=== PATIENT | female | born 1975 ===

== ENCOUNTER 2021-07-21 06:11 | Inpatient (IN) | payer SELFPAY ==
[2021-07-21] MEDS ORDERED: Sodium Chloride 0.9% 1,000 ML IV SCH ×2 (06:30→06:45)
[2021-07-21 07:14] LABS: PCO2 ARTERIAL,POC 37 mmHg (35-48)
--- NOTE | 2021-07-21 07:29 | EDM.PDOC ---
ED HPI GENERAL MEDICAL PROBLEM - General Chief Complaint: Respiratory Problem Stated Complaint: SHORTNESS OF BREATH, COVID Time Seen by Provider: 07/21/21 06:26 Source of Information: Reports: Patient, Family History Limitations: Reports: No Limitations - History of Present Illness INITIAL COMMENTS - FREE TEXT/NARRATIVE: Patient presents to the ED with weakness, lightheadedness, shortness of breath and covid positive about 2 weeks ago. She is unvaccinated and became infected at a family gathering for [employer]. Entire family became ill, she was tested about a week after onset of cough, fevers, runny nose, nasal congestion, body aches, loss of smell and taste. Has not been eating or drinking well, started to get some smell and taste back last night. Feels very weak, can not lay flat, no more fevers, minimal intake, feels confused. Parents that are vaccinated brought her in today. Sats at triage were 89% with exertion. Onset: Other (about two weeks ago shortly after .) Duration: Getting Worse Severity: Moderate - Related Data Allergies Allergy/AdvReac Type Severity Reaction Status Date / Time cefuroxime Allergy Difficulty Verified 07/21/21 06:55 Swallowing Sulfa (Sulfonamide Allergy Airway Verified 07/21/21 06:55 Antibiotics) Tightness Home Meds: Home Meds . [No Known Home Meds] 07/21/21 [History] Past Medical History Psychiatric History: Reports: Bipolar (currently managed without medications) - Past Surgical History Female Surgical History: Reports: Hysterectomy Social & Family History - Tobacco Use Tobacco Use Status *Q: Never Tobacco User - Alcohol Use Alcohol Use History: No Alcohol Use in Last Twelve Months: No - Recreational Drug Use Recreational Drug Use: No Drug Use in Last 12 Months: No - Living Situation & Occupation Living situation: Reports: , with Family Occupation: Employed ED ROS GENERAL - Review of Systems Review Of Systems: See Below Constitutional: Reports: Malaise, Weakness, Fatigue, Decreased Appetite HEENT: Reports: No Symptoms Respiratory: Reports: Shortness of Breath, Pleuritic Chest Pain, Cough. Denies: Sputum, Hemoptysis Cardiovascular: Reports: Dyspnea on Exertion GI/Abdominal: Reports: Diarrhea (x 2 toady, no black or blood) : Reports: Other (decreased urination) Musculoskeletal: Reports: Muscle Pain (aches only) Skin: Reports: Rash (on chest, macular, non itchy or draining) Neurological: Reports: Confusion, Dizziness Psychiatric: Reports: No Symptoms ED EXAM, GENERAL - Physical Exam Exam: See Below Exam Limited By: No Limitations General Appearance: Alert, WD/WN, No Apparent Distress Eye Exam: Bilateral Eye: EOMI, Normal Inspection, PERRL Ears: Normal External Exam, Hearing Grossly Normal Nose: Normal Inspection, Normal Mucosa, No Blood Throat/Mouth: Normal Voice, Other (severely dry mucous membranes, tongue is white, lips are cracked) Head: Atraumatic Neck: Normal Inspection, Supple, Non-Tender Respiratory/Chest: Decreased Breath Sounds (bases), Crackles (bases), Splinting. No: Respiratory Distress, Rales, Rhonchi, Wheezing Cardiovascular: No Edema, No Murmur, Tachycardia GI/Abdominal: Normal Bowel Sounds, Soft, Non-Tender. No: Rigid, Rebound, Tender Extremities: Normal Inspection, Normal Range of Motion, Non-Tender, No Pedal Edema, Normal Capillary Refill Neurological: Alert, Oriented, CN II-XII Intact, Normal Cognition, No Motor/Sensory Deficits Psychiatric: Normal Affect Skin Exam: Other (lacy reticular rash on the chest consistent with viral process) #1 Interpretation EKG Date: 07/21/21 Time: 07:49 Rhythm: NSR Rate (Beats/Min): 99 Gap: Normal P-Wave: Present QRS: Normal ST-T: Other QT: Normal Comparison: NA - No Prior EKG EKG Interpretation Comments: early repolarization with nonspecific st changes associated with rate Course - Vital Signs Last Recorded V/S: Last Vital Signs Temp 36.6 C 07/21/21 06:14 Pulse 92 07/21/21 08:06 Resp 20 07/21/21 08:06 BP 109/65 07/21/21 08:06 Pulse Ox 96 07/21/21 08:06 - Orders/Labs/Meds Orders: Active Orders 24 hr Category Date Time Status Admission Status [Patient Status] [ADT] Routine ADT 07/21/21 08:41 Active EKG Documentation Completion [RC] ASDIRECTED Care 07/21/21 06:27 Active Nurse Communication: Isolation [RC] ASDIRECTED Care 07/21/21 08:24 Active Oxygen Therapy [RC] ASDIRECTED Care 07/21/21 08:28 Active Peripheral IV Care [RC] . DIRECTED Care 07/21/21 06:27 Active Positioning, Patient [RC] ASDIRECTED Care 07/21/21 08:23 Active RT Incentive Spirometry [RC] ASDIRECTED Care 07/21/21 08:23 Active Chest 1V Frontal [CR] Stat Exams 07/21/21 06:26 Ordered Gallbladder [Abdomen Ltd] [US] Stat Exams 07/21/21 08:29 Ordered COVID-19/FLU A+B/RSV [MOLEC] Stat Lab 07/21/21 08:30 Received CULTURE BLOOD [BC] Stat Lab 07/21/21 06:27 Ordered CULTURE BLOOD [BC] Stat Lab 07/21/21 06:50 Received Acetaminophen [TylenoL] Med 07/21/21 08:23 Active 650 mg PO Q4H PRN Remdesivir 100 mg Med 07/22/21 09:00 Active Sodium Chloride 0.9% [Normal Saline] 100 ml IV Q24H Remdesivir 200 mg Med 07/21/21 08:23 Active Sodium Chloride 0.9% [Normal Saline] 250 ml IV ONETIME Sodium Chloride 0.9% [Normal Saline] 1,000 ml Med 07/21/21 06:30 Active IV ASDIRECTED Sodium Chloride 0.9% [Normal Saline] 1,000 ml Med 07/21/21 06:45 Active IV ASDIRECTED Sodium Chloride 0.9% [Saline Flush] Med 07/21/21 06:26 Active 10 ml FLUSH ASDIRECTED PRN dexAMETHasone Med 07/21/21 08:30 Active 6 mg PO DAILY Blood Culture x2 Reflex Set [OM.PC] Stat Oth 07/21/21 06:26 Ordered Isolation [COMM] Stat Oth 07/21/21 08:23 Active Peripheral IV Insertion Adult [OM.PC] Routine Oth 07/21/21 06:26 Ordered Medication Orders Acetaminophen (Acetaminophen 325 Mg Tab) 650 mg PO Q4H PRN PRN Reason: Fever Greater Than 101 Dexamethasone (Dexamethasone 2 Mg Tab) 6 mg PO DAILY JOSHUA Stop: 07/30/21 08:01 Sodium Chloride (Normal Saline) 1,000 mls @ 999 mls/hr IV ASDIRECTED JOSHUA Last Admin: 07/21/21 06:50 Dose: 999 mls/hr Documented by: GEORGINA Sodium Chloride (Normal Saline) 1,000 mls @ 999 mls/hr IV ASDIRECTED JOSHUA Last Admin: 07/21/21 07:55 Dose: 999 mls/hr Documented by: GEORGINA Remdesivir 200 mg/ Sodium (Chloride) 250 mls @ 250 mls/hr IV ONETIME ONE Stop: 07/21/21 09:22 Remdesivir 100 mg/ Sodium (Chloride) 100 mls @ 100 mls/hr IV Q24H JOSHUA Stop: 07/25/21 09:59 Sodium Chloride (Sodium Chloride 0.9% 10 Ml Syringe) 10 ml FLUSH ASDIRECTED PRN PRN Reason: Keep Vein Open Labs: Laboratory Tests 07/21/21 07/21/21 07/21/21 Range/Units 06:50 06:50 06:50 WBC 3.0 L (4.0-10.2) K/uL RBC 4.72 (3.77-5.09) M/uL Hgb 14.6 (11.7-15.5) g/dL Hct 43.8 (34.0-46.0) % MCV 92.8 (84.0-98.0) fL MCH 30.9 (28.2-33.3) pg MCHC 33.3 (31.7-36.0) g/dL RDW 13.1 (11.2-14.1) % Plt Count 213 (150-350) K/uL Neut % (Auto) 63.7 (45.0-80.0) % Lymph % (Auto) 17.3 (10.0-50.0) % [place] % (Auto) 18.7 H (2.0-14.0) % Eos % (Auto) 0.0 (0.0-5.0) % Baso % (Auto) 0.3 (0.0-2.0) % Neut # (Auto) 1.91 (1.40-7.00) K/uL Lymph # (Auto) 0.52 (0.50-3.50) K/uL [place] # (Auto) 0.56 (0.00-1.00) K/uL Eos # (Auto) 0.00 (0.00-0.50) K/uL Baso # (Auto) 0.01 (0.00-0.20) K/uL D-Dimer, Quantitative 347 (0-400) ng/mL POC ABG pH (7.35-7.45) pH POC ABG pCO2 (35-48) mmHg POC ABG pO2 (83-108) mmHg POC ABG HCO3 (22-26) mmol/L POC ABG Total CO2 (23-27) mmol/L POC ABG O2 Sat (95-98) % POC ABG Base Excess (-2-3) mmol/L O2 Delivery Device Oxygen Flow Rate Sodium 141 (136-145) mmol/L Potassium 3.5 (3.5-5.1) mmol/L Chloride 103 (98-107) mmol/L Carbon Dioxide 25.1 (21.0-32.0) mmol/L Anion Gap 12.9 (7-15) meq/L BUN 8 (7-18) mg/dL Creatinine 0.59 (0.51-1.17) mg/dL Est Cr Clr Drug Dosing TNP Estimated GFR (MDRD) > 60 mL/min Glucose 90 (70-99) mg/dL Lactic Acid (0.4-2.0) mmol/L Calcium 8.7 (8.5-10.1) mg/dL Total Bilirubin 0.5 (0.2-1.0) mg/dL AST 100 H (15-37) U/L ALT 249 H (12-78) U/L Alkaline Phosphatase 128 H (46-116) IU/L Troponin I High Sens 8 (<=51) ng/L C-Reactive Protein 6.6 H (<=0.9) mg/dL Total Protein 7.3 (6.4-8.2) g/dL Albumin 3.0 L (3.4-5.0) g/dL Specimen Type Urine Color Urine Appearance Urine pH (5.0-9.0) Ur Specific Winger (1.005-1.030) Urine Protein (NEGATIVE) mg/dL Urine Glucose (UA) (NEGATIVE) mg/dL Urine Ketones (NEGATIVE) mg/dL Urine Occult Blood (NEGATIVE) Urine Nitrite (NEGATIVE) Urine Bilirubin (NEGATIVE) Urine Urobilinogen (0.2-1.0) E.U./dL Ur Leukocyte Esterase (NEGATIVE) 07/21/21 07/21/21 07/21/21 Range/Units 06:50 07:00 07:53 WBC (4.0-10.2) K/uL RBC (3.77-5.09) M/uL Hgb (11.7-15.5) g/dL Hct (34.0-46.0) % MCV (84.0-98.0) fL MCH (28.2-33.3) pg MCHC (31.7-36.0) g/dL RDW (11.2-14.1) % Plt Count (150-350) K/uL Neut % (Auto) (45.0-80.0) % Lymph % (Auto) (10.0-50.0) % [place] % (Auto) (2.0-14.0) % Eos % (Auto) (0.0-5.0) % Baso % (Auto) (0.0-2.0) % Neut # (Auto) (1.40-7.00) K/uL Lymph # (Auto) (0.50-3.50) K/uL [place] # (Auto) (0.00-1.00) K/uL Eos # (Auto) (0.00-0.50) K/uL Baso # (Auto) (0.00-0.20) K/uL D-Dimer, Quantitative (0-400) ng/mL POC ABG pH 7.4 (7.35-7.45) pH POC ABG pCO2 37 (35-48) mmHg POC ABG pO2 65 L* (83-108) mmHg POC ABG HCO3 25.1 (22-26) mmol/L POC ABG Total CO2 25.6 (23-27) mmol/L POC ABG O2 Sat 93.2 L (95-98) % POC ABG Base Excess 1 (-2-3) mmol/L O2 Delivery Device Room air Oxygen Flow Rate Not Reportable Sodium (136-145) mmol/L Potassium (3.5-5.1) mmol/L Chloride (98-107) mmol/L Carbon Dioxide (21.0-32.0) mmol/L Anion Gap (7-15) meq/L BUN (7-18) mg/dL Creatinine (0.51-1.17) mg/dL Est Cr Clr Drug Dosing Estimated GFR (MDRD) mL/min Glucose (70-99) mg/dL Lactic Acid 0.7 (0.4-2.0) mmol/L Calcium (8.5-10.1) mg/dL Total Bilirubin (0.2-1.0) mg/dL AST (15-37) U/L ALT (12-78) U/L Alkaline Phosphatase (46-116) IU/L Troponin I High Sens (<=51) ng/L C-Reactive Protein (<=0.9) mg/dL Total Protein (6.4-8.2) g/dL Albumin (3.4-5.0) g/dL Specimen Type Urincc Urine Color Yellow Urine Appearance Clear Urine pH 6.5 (5.0-9.0) Ur Specific Winger 1.015 (1.005-1.030) Urine Protein Negative (NEGATIVE) mg/dL Urine Glucose (UA) Negative (NEGATIVE) mg/dL Urine Ketones >=160 H (NEGATIVE) mg/dL Urine Occult Blood Negative (NEGATIVE) Urine Nitrite Negative (NEGATIVE) Urine Bilirubin Negative (NEGATIVE) Urine Urobilinogen 0.2 (0.2-1.0) E.U./dL Ur Leukocyte Esterase Negative (NEGATIVE) Meds: Medications Generic Name Dose Route Start Last Admin Trade Name Freq PRN Reason Stop Dose Admin Acetaminophen 650 mg 07/21/21 08:23 Acetaminophen 325 Mg Tab PO Q4H PRN Fever Greater Than 101 Dexamethasone 6 mg 07/21/21 08:30 Dexamethasone 2 Mg Tab PO 07/30/21 08:01 DAILY JOSHUA Sodium Chloride 1,000 mls @ 999 mls/hr 07/21/21 06:30 07/21/21 06:50 Normal Saline IV 999 mls/hr ASDIRECTED JOSHUA Administration Sodium Chloride 1,000 mls @ 999 mls/hr 07/21/21 06:45 07/21/21 07:55 Normal Saline IV 999 mls/hr ASDIRECTED JOSUHA Administration Remdesivir 200 mg/ Sodium 250 mls @ 250 mls/hr 07/21/21 08:23 Chloride IV 07/21/21 09:22 ONETIME ONE Remdesivir 100 mg/ Sodium 100 mls @ 100 mls/hr 07/22/21 09:00 Chloride IV 07/25/21 09:59 Q24H JOSHUA Sodium Chloride 10 ml 07/21/21 06:26 Sodium Chloride 0.9% 10 Ml Syringe FLUSH ASDIRECTED PRN Keep Vein Open - Radiology Interpretation Free Text/Narrative:: lower lung mancuso with covid type pneumonia appearance. preliminary interpretation. - Re-Assessments/Exams Free Text/Narrative Re-Assessment/Exam: Patient was hypoxic at arrival at 89%. given 2 lpm. 96%. O2 stopped for abg, Po2 65. still maintaining 92% on room air. will ambulate in the room. Check labs, ekg, chest x-ray, give IV fluids x 2 liters as skin is tenting and clinically dry. 07/21/21 08:14 normal ddimer, trop, wbc. chest x-ray looks like covid pneumonia. will ambulate in the room. Did briefly drop to 89% with short walk to bathroom. with attempt to stand gets near syncopal. will not ambulate further. Needs admission for remdesivir, decadron, incentive spirometery, nebs. 07/21/21 08:23 retest for covid, flu rsv. needs remdesivir, decadron, oxygen Departure - Departure Time of Disposition: 08:28 Disposition: Admitted As Inpatient 64 Condition: Fair Clinical Impression: Pneumonia due to COVID-19 virus, Hypoxia - Discharge Information *PRESCRIPTION DRUG MONITORING PROGRAM REVIEWED*: Not Applicable *COPY OF PRESCRIPTION DRUG MONITORING REPORT IN PATIENT DELTA: Not Applicable Sepsis Event Note (ED) - Focused Exam Vital Signs: Vital Signs Temp Pulse Resp BP Pulse Ox 07/21/21 08:06 92 20 109/65 96 07/21/21 07:00 107 H 20 95 07/21/21 06:20 104 H 18 119/84 93 L 07/21/21 06:14 36.6 C 112 H 20 125/84 89 L - My Orders Last 24 Hours: My Active Orders 07/21/21 06:26 Chest 1V Frontal [CR] Stat Sodium Chloride 0.9% [Saline Flush] 10 ml FLUSH ASDIRECTED PRN Blood Culture x2 Reflex Set [OM.PC] Stat Peripheral IV Insertion Adult [OM.PC] Routine 07/21/21 06:27 EKG Documentation Completion [RC] ASDIRECTED Peripheral IV Care [RC] . DIRECTED CULTURE BLOOD [BC] Stat 07/21/21 06:30 Sodium Chloride 0.9% [Normal Saline] 1,000 ml IV ASDIRECTED 07/21/21 06:45 Sodium Chloride 0.9% [Normal Saline] 1,000 ml IV ASDIRECTED 07/21/21 06:50 CULTURE BLOOD [BC] Stat 07/21/21 08:23 Positioning, Patient [RC] ASDIRECTED RT Incentive Spirometry [RC] ASDIRECTED Acetaminophen [TylenoL] 650 mg PO Q4H PRN Remdesivir 200 mg Sodium Chloride 0.9% [Normal Saline] 250 ml IV ONETIME Isolation [COMM] Stat 07/21/21 08:24 Nurse Communication: Isolation [RC] ASDIRECTED 07/21/21 08:28 Oxygen Therapy [RC] ASDIRECTED 07/21/21 08:29 Gallbladder [Abdomen Ltd] [US] Stat 07/21/21 08:30 COVID-19/FLU A+B/RSV [MOLEC] Stat dexAMETHasone 6 mg PO DAILY 07/21/21 08:41 Admission Status [Patient Status] [ADT] Routine 07/22/21 09:00 Remdesivir 100 mg Sodium Chloride 0.9% [Normal Saline] 100 ml IV Q24H - Assessment/Plan Last 24 Hours: My Active Orders 07/21/21 06:26 Chest 1V Frontal [CR] Stat Sodium Chloride 0.9% [Saline Flush] 10 ml FLUSH ASDIRECTED PRN Blood Culture x2 Reflex Set [OM.PC] Stat Peripheral IV Insertion Adult [OM.PC] Routine 07/21/21 06:27 EKG Documentation Completion [RC] ASDIRECTED Peripheral IV Care [RC] . DIRECTED CULTURE BLOOD [BC] Stat 07/21/21 06:30 Sodium Chloride 0.9% [Normal Saline] 1,000 ml IV ASDIRECTED 07/21/21 06:45 Sodium Chloride 0.9% [Normal Saline] 1,000 ml IV ASDIRECTED 07/21/21 06:50 CULTURE BLOOD [BC] Stat 07/21/21 08:23 Positioning, Patient [RC] ASDIRECTED RT Incentive Spirometry [RC] ASDIRECTED Acetaminophen [TylenoL] 650 mg PO Q4H PRN Remdesivir 200 mg Sodium Chloride 0.9% [Normal Saline] 250 ml IV ONETIME Isolation [COMM] Stat 07/21/21 08:24 Nurse Communication: Isolation [RC] ASDIRECTED 07/21/21 08:28 Oxygen Therapy [RC] ASDIRECTED 07/21/21 08:29 Gallbladder [Abdomen Ltd] [US] Stat 07/21/21 08:30 COVID-19/FLU A+B/RSV [MOLEC] Stat dexAMETHasone 6 mg PO DAILY 12/13/21 08:41 Admission Status [Patient Status] [ADT] Routine 07/22/21 09:00 Remdesivir 100 mg Sodium Chloride 0.9% [Normal Saline] 100 ml IV Q24H
[2021-07-21 08:02] LABS: ANION GAP 12.9 meq/L (7-15); CHLORIDE,CL 103 mmol/L (98-107); SODIUM,NA 141 mmol/L (136-145)
[2021-07-21] MEDS ORDERED: Acetaminophen 325 MG Tab PO PRN (08:23)
[2021-07-21] MEDS ORDERED: REMDESIVIR 200 MG in Sodium Chloride 0.9% 250 ML IV ONE (08:23)
[2021-07-21 09:23] LABS: RESPIRATORY SYNCYTIAL VIR NAA NEGATIVE (NEGATIVE)
[2021-07-21 09:25] LABS: CORONAVIRUS COVID-19 NAA POSITIVE (NEGATIVE)
[2021-07-21] MEDS: Dexamethasone 2 MG Tab PO SCH (09:57)
[2021-07-21] MEDS ORDERED: Albuterol 0.083% 2.5 MG/3 ML Neb Soln NEB PRN (10:06)
[2021-07-21] MEDS ORDERED: Melatonin 3 MG Tab PO PRN (10:06)
[2021-07-21] MEDS ORDERED: Bisacodyl 5 MG Tab PO PRN (10:06)
[2021-07-21] MEDS ORDERED: Ondansetron 4 MG Tab.DIS PO PRN (10:06)
[2021-07-21] MEDS ORDERED: Ibuprofen 400 MG Tab PO PRN (10:06)
[2021-07-21] MEDS: Ascorbic Acid 500 MG Tab PO SCH ×2 (11:26→17:14)
[2021-07-21] MEDS: Enoxaparin 40 MG/0.4 ML Syringe SUBCUT SCH (11:26)
[2021-07-21] MEDS: Zinc (Zinc Gluconate) 50 MG Tab PO SCH (11:26)
[2021-07-21] MEDS: Cholecalciferol (Vitamin D3) 5,000 UNIT Tab PO SCH (11:26)
--- NOTE | 2021-07-21 13:25 | PCM.SN.2 ---
- Free Text/Narrative Note: Ultrasound report. Testing done to rule out obstructive or more ominous process duet o elevated LFTs with covid and concern for monitoring with remdesivir. Liver is normal, no gallstones, no pericholecystic fluid, no explanation for elevation of LFT. Simple cyst at lower pole of right kidney interpreted by radiology
[2021-07-22 08:01] LABS: CHLORIDE,CL 108 mmol/L (98-107); SODIUM,NA 145 mmol/L (136-145)
[2021-07-22 08:14] LABS: ANION GAP 13.5 meq/L (7-15)
--- NOTE | 2021-07-22 08:24 | PCM.PN ---
- General Info Date of Service: 07/22/21 Admission Dx/Problem (Free Text): Admission Diagnosis/Problem Admission Diagnosis/Problem Hypoxia due to covid 19 weakness Subjective Update: Patient was admitted yesterday for near syncope, dehydration, covid 19 positive hypoxia. She has been trying to prone, doing several hours a day. She is eating and drinking, still some loose stools but no abdominal pain, black or bloody stools. received first dose of remdesivir and is on oxygen. Feeling a bit better. Having some heartburn, and has not been able to sleep in two weeks. Does not feel it is related to her bipolar disorder, does not usually struggle to sleep, blames some of it on being uncomfortable at home and is more co mfortable here. Has been trying Benadryl at home, did not help. Has never been on other sleep aids. Did not take the melatonin ordered prn last night. - Review of Systems General: Reports: Fatigue, Chills HEENT: Reports: No Symptoms. Denies: Headaches, Post Nasal Drip, Sinus Congestion, Sore Throat Pulmonary: Reports: Shortness of Breath, Pleuritic Chest Pain, Cough. Denies: Sputum, Hemoptysis, Wheezing Cardiovascular: Reports: Dyspnea on Exertion, Lightheadedness. Denies: Chest Pain, Palpitations Gastrointestinal: Reports: Other (heartburn) Genitourinary: Reports: No Symptoms Musculoskeletal: Reports: No Symptoms Skin: Reports: Rash (unchanged from yesterday) Neurological: Reports: Dizziness (with standing, improves wtih pausing), Other (insomnia) - Patient Data Vitals - Most Recent: Last Vital Signs Temp 36.7 C 07/22/21 04:00 Pulse 75 07/22/21 04:00 Resp 14 07/22/21 04:00 BP 118/72 07/22/21 04:00 Pulse Ox 95 07/22/21 04:00 Weight - Most Recent: 52.163 kg I&O - Last 24 Hours: Intake & Output 07/21/21 07/22/21 07/22/21 22:59 06:59 14:59 Intake Total 1919 Balance 1919 Lab Results Last 24 Hours: Laboratory Results - last 24 hr 07/21/21 07/21/21 07/22/21 Range/Units 07:53 08:30 07:30 WBC 5.0 (4.0-10.2) K/uL RBC 4.21 (3.77-5.09) M/uL Hgb 13.0 D (11.7-15.5) g/dL Hct 39.2 (34.0-46.0) % MCV 93.1 (84.0-98.0) fL MCH 30.9 (28.2-33.3) pg MCHC 33.2 (31.7-36.0) g/dL RDW 12.6 (11.2-14.1) % Plt Count 301 D (150-350) K/uL MPV 9.30 (7.00-11.50) fL Sodium (136-145) mmol/L Potassium (3.5-5.1) mmol/L Chloride (98-107) mmol/L Carbon Dioxide (21.0-32.0) mmol/L Anion Gap (7-15) meq/L BUN (7-18) mg/dL Creatinine (0.51-1.17) mg/dL Est Cr Clr Drug Dosing mL/min Estimated GFR (MDRD) mL/min Glucose (70-99) mg/dL Calcium (8.5-10.1) mg/dL Total Bilirubin (0.2-1.0) mg/dL Direct Bilirubin (0.0-0.2) mg/dL AST (15-37) U/L ALT (12-78) U/L Alkaline Phosphatase (46-116) IU/L Total Protein (6.4-8.2) g/dL Albumin (3.4-5.0) g/dL Specimen Type Urincc Urine Color Yellow Urine Appearance Clear Urine pH 6.5 (5.0-9.0) Ur Specific [place] 1.015 (1.005-1.030) Urine Protein Negative (NEGATIVE) mg/dL Urine Glucose (UA) Negative (NEGATIVE) mg/dL Urine Ketones >=160 H (NEGATIVE) mg/dL Urine Occult Blood Negative (NEGATIVE) Urine Nitrite Negative (NEGATIVE) Urine Bilirubin Negative (NEGATIVE) Urine Urobilinogen 0.2 (0.2-1.0) E.U./dL Ur Leukocyte Esterase Negative (NEGATIVE) Influenza Type A RNA Negative (NEGATIVE) RSV RNA (INAAT) Negative (NEGATIVE) Influenza Type B RNA Negative (NEGATIVE) SARS-CoV-2 RNA (NINFA) Positive H (NEGATIVE) 07/22/21 Range/Units 07:30 WBC (4.0-10.2) K/uL RBC (3.77-5.09) M/uL Hgb (11.7-15.5) g/dL Hct (34.0-46.0) % MCV (84.0-98.0) fL MCH (28.2-33.3) pg MCHC (31.7-36.0) g/dL RDW (11.2-14.1) % Plt Count (150-350) K/uL MPV (7.00-11.50) fL Sodium 145 (136-145) mmol/L Potassium 4.0 (3.5-5.1) mmol/L Chloride 108 H (98-107) mmol/L Carbon Dioxide 27.5 (21.0-32.0) mmol/L Anion Gap 13.5 (7-15) meq/L BUN 9 (7-18) mg/dL Creatinine 0.59 (0.51-1.17) mg/dL Est Cr Clr Drug Dosing 92.23 mL/min Estimated GFR (MDRD) > 60 mL/min Glucose 94 (70-99) mg/dL Calcium 8.6 (8.5-10.1) mg/dL Total Bilirubin 0.4 (0.2-1.0) mg/dL Direct Bilirubin 0.1 (0.0-0.2) mg/dL AST 58 H (15-37) U/L ALT 177 H (12-78) U/L Alkaline Phosphatase 122 H (46-116) IU/L Total Protein 6.5 (6.4-8.2) g/dL Albumin 2.7 L (3.4-5.0) g/dL Specimen Type Urine Color Urine Appearance Urine pH (5.0-9.0) Ur Specific [place] (1.005-1.030) Urine Protein (NEGATIVE) mg/dL Urine Glucose (UA) (NEGATIVE) mg/dL Urine Ketones (NEGATIVE) mg/dL Urine Occult Blood (NEGATIVE) Urine Nitrite (NEGATIVE) Urine Bilirubin (NEGATIVE) Urine Urobilinogen (0.2-1.0) E.U./dL Ur Leukocyte Esterase (NEGATIVE) Influenza Type A RNA (NEGATIVE) RSV RNA (INAAT) (NEGATIVE) Influenza Type B RNA (NEGATIVE) SARS-CoV-2 RNA (NINFA) (NEGATIVE) Hubert Results Last 24 Hours: Microbiology 07/21/21 06:50 Aerobic Blood Culture - Preliminary Blood - Venous NO GROWTH AFTER 1 DAY Anaerobic Blood Culture - Preliminary NO GROWTH AFTER 1 DAY Med Orders - Current: Current Medications Acetaminophen (Acetaminophen 325 Mg Tab) 650 mg PO Q4H PRN PRN Reason: Fever Greater Than 101 Albuterol (Albuterol 0.083% 2.5 Mg/3 Ml Neb Soln) 2.5 mg NEB Q2H PRN PRN Reason: Shortness Of Breath/wheezing Last Admin: 07/22/21 04:08 Dose: 2.5 mg Documented by: Ascorbic Acid (Ascorbic Acid 500 Mg Tab) 500 mg PO BID [facility] Last Admin: 07/21/21 17:14 Dose: 500 mg Documented by: Bisacodyl (Bisacodyl 5 Mg Tab) 5 mg PO DAILY PRN PRN Reason: Constipation Cholecalciferol (Cholecalciferol (Vitamin D3) 5,000 Unit Tab) 5,000 unit PO DAILY [facility] Last Admin: 07/21/21 11:26 Dose: 5,000 unit Documented by: Dexamethasone (Dexamethasone 2 Mg Tab) 6 mg PO DAILY [facility] Stop: 07/26/21 08:01 Last Admin: 07/21/21 09:57 Dose: 6 mg Documented by: Enoxaparin Sodium (Enoxaparin 40 Mg/0.4 Ml Syringe) 40 mg SUBCUT DAILY [facility] Last Admin: 07/21/21 11:26 Dose: 40 mg Documented by: Famotidine (Famotidine 20 Mg/2 Ml Sdv) 20 mg IVPUSH BID [facility] Sodium Chloride (Normal Saline) 1,000 mls @ 999 mls/hr IV ASDIRECTED [facility] Last Admin: 07/21/21 06:50 Dose: 999 mls/hr Documented by: Sodium Chloride (Normal Saline) 1,000 mls @ 999 mls/hr IV ASDIRECTED [facility] Last Admin: 07/21/21 07:55 Dose: 999 mls/hr Documented by: Remdesivir 100 mg/ Sodium (Chloride) 100 mls @ 100 mls/hr IV Q24H [facility] Stop: 07/25/21 09:59 Ibuprofen (Ibuprofen 400 Mg Tab) 400 mg PO Q6H PRN PRN Reason: Pain (mild 1-3) Melatonin (Melatonin 3 Mg Tab) 6 mg PO BEDTIME [facility] Ondansetron HCl (Ondansetron 4 Mg Tab.Dis) 4 mg PO Q4H PRN PRN Reason: Nausea/Vomiting Last Admin: 07/22/21 05:53 Dose: 4 mg Documented by: Sodium Chloride (Sodium Chloride 0.9% 10 Ml Syringe) 10 ml FLUSH ASDIRECTED PRN PRN Reason: Keep Vein Open Zinc Gluconate (Zinc (Zinc Gluconate) 50 Mg Tab) 50 mg PO DAILY [facility] Last Admin: 07/21/21 11:26 Dose: 50 mg Documented by: Zolpidem Tartrate (Zolpidem 5 Mg Tab) 5 mg PO BEDTIME [facility] Discontinued Medications Remdesivir 200 mg/ Sodium (Chloride) 250 mls @ 250 mls/hr IV ONETIME ONE Stop: 07/21/21 09:22 Last Admin: 07/21/21 09:58 Dose: 250 mls/hr Documented by: Melatonin (Melatonin 3 Mg Tab) 6 mg PO BEDTIME PRN PRN Reason: Insomnia - Exam Quality Assessment: Supplemental Oxygen General: Alert, Oriented, Cooperative HEENT: Pupils Equal, Pupils Reactive, EOMI, Other (mucous membranes improved, just not to baseline, still clinically dry) Neck: Supple, Trachea Midline Lungs: Decreased Breath Sounds (bases but improved from yesterday), Wheezing (very minimal) GI/Abdominal Exam: Normal Bowel Sounds, Soft, Non-Tender, No Abnormal Bruit, No Mass Extremities: Normal Inspection, Normal Range of Motion, Non-Tender, No Pedal Edema, Normal Capillary Refill Neurological: No New Focal Deficit Psy/Mental Status: Alert, Normal Affect - Patient Data Lab Results Last 24 hrs: Laboratory Results - last 24 hr 07/21/21 07/21/21 07/22/21 Range/Units 07:53 08:30 07:30 WBC 5.0 (4.0-10.2) K/uL RBC 4.21 (3.77-5.09) M/uL Hgb 13.0 D (11.7-15.5) g/dL Hct 39.2 (34.0-46.0) % MCV 93.1 (84.0-98.0) fL MCH 30.9 (28.2-33.3) pg MCHC 33.2 (31.7-36.0) g/dL RDW 12.6 (11.2-14.1) % Plt Count 301 D (150-350) K/uL MPV 9.30 (7.00-11.50) fL Sodium (136-145) mmol/L Potassium (3.5-5.1) mmol/L Chloride (98-107) mmol/L Carbon Dioxide (21.0-32.0) mmol/L Anion Gap (7-15) meq/L BUN (7-18) mg/dL Creatinine (0.51-1.17) mg/dL Est Cr Clr Drug Dosing mL/min Estimated GFR (MDRD) mL/min Glucose (70-99) mg/dL Calcium (8.5-10.1) mg/dL Total Bilirubin (0.2-1.0) mg/dL Direct Bilirubin (0.0-0.2) mg/dL AST (15-37) U/L ALT (12-78) U/L Alkaline Phosphatase (46-116) IU/L Total Protein (6.4-8.2) g/dL Albumin (3.4-5.0) g/dL Specimen Type Urincc Urine Color Yellow Urine Appearance Clear Urine pH 6.5 (5.0-9.0) Ur Specific [place] 1.015 (1.005-1.030) Urine Protein Negative (NEGATIVE) mg/dL Urine Glucose (UA) Negative (NEGATIVE) mg/dL Urine Ketones >=160 H (NEGATIVE) mg/dL Urine Occult Blood Negative (NEGATIVE) Urine Nitrite Negative (NEGATIVE) Urine Bilirubin Negative (NEGATIVE) Urine Urobilinogen 0.2 (0.2-1.0) E.U./dL Ur Leukocyte Esterase Negative (NEGATIVE) Influenza Type A RNA Negative (NEGATIVE) RSV RNA (INAAT) Negative (NEGATIVE) Influenza Type B RNA Negative (NEGATIVE) SARS-CoV-2 RNA (NINFA) Positive H (NEGATIVE) 07/22/21 Range/Units 07:30 WBC (4.0-10.2) K/uL RBC (3.77-5.09) M/uL Hgb (11.7-15.5) g/dL Hct (34.0-46.0) % MCV (84.0-98.0) fL MCH (28.2-33.3) pg MCHC (31.7-36.0) g/dL RDW (11.2-14.1) % Plt Count (150-350) K/uL MPV (7.00-11.50) fL Sodium 145 (136-145) mmol/L Potassium 4.0 (3.5-5.1) mmol/L Chloride 108 H (98-107) mmol/L Carbon Dioxide 27.5 (21.0-32.0) mmol/L Anion Gap 13.5 (7-15) meq/L BUN 9 (7-18) mg/dL Creatinine 0.59 (0.51-1.17) mg/dL Est Cr Clr Drug Dosing 92.23 mL/min Estimated GFR (MDRD) > 60 mL/min Glucose 94 (70-99) mg/dL Calcium 8.6 (8.5-10.1) mg/dL Total Bilirubin 0.4 (0.2-1.0) mg/dL Direct Bilirubin 0.1 (0.0-0.2) mg/dL AST 58 H (15-37) U/L ALT 177 H (12-78) U/L Alkaline Phosphatase 122 H (46-116) IU/L Total Protein 6.5 (6.4-8.2) g/dL Albumin 2.7 L (3.4-5.0) g/dL Specimen Type Urine Color Urine Appearance Urine pH (5.0-9.0) Ur Specific [place] (1.005-1.030) Urine Protein (NEGATIVE) mg/dL Urine Glucose (UA) (NEGATIVE) mg/dL Urine Ketones (NEGATIVE) mg/dL Urine Occult Blood (NEGATIVE) Urine Nitrite (NEGATIVE) Urine Bilirubin (NEGATIVE) Urine Urobilinogen (0.2-1.0) E.U./dL Ur Leukocyte Esterase (NEGATIVE) Influenza Type A RNA (NEGATIVE) RSV RNA (INAAT) (NEGATIVE) Influenza Type B RNA (NEGATIVE) SARS-CoV-2 RNA (NINFA) (NEGATIVE) Result Diagrams: 07/22/21 07:30 07/22/21 07:30 Hubert Results Last 24 hrs: Microbiology 07/21/21 06:50 Aerobic Blood Culture - Preliminary Blood - Venous NO GROWTH AFTER 1 DAY Anaerobic Blood Culture - Preliminary NO GROWTH AFTER 1 DAY Sepsis Event Note - Evaluation Sepsis Screening Result: No Definite Risk - Focused Exam Vital Signs: Vital Signs Temp Pulse Resp BP Pulse Ox 07/22/21 04:00 36.7 C 75 14 118/72 95 - Problem List & Annotations (1) Elevated LFTs SNOMED Code(s): 798826028 Code(s): R79.89 - OTHER SPECIFIED ABNORMAL FINDINGS OF BLOOD CHEMISTRY Status: Acute Current Visit: Yes Annotation/Comment:: Probable due to covid, improving with hydation, still in the acceptable range to continue remdesivir. ultrasound yesterday was negative for abcute hepatobiliary process. Continue to monitor (2) Insomnia SNOMED Code(s): 547076379 Code(s): G47.00 - INSOMNIA, UNSPECIFIED Status: Acute Current Visit: Yes Qualifiers: Insomnia type: other insomnia Qualified Code(s): G47.09 - Other insomnia Annotation/Comment:: Not had problems with this in the past. Since having covid not able to sleep, does not think it has anything to do with her bipolar, no manic episodes in the past. Tried benaryl at home, didn't work. Has melatonin prn and will give ambien tonight and try (3) Hypoxia SNOMED Code(s): 604017720 Code(s): R09.02 - HYPOXEMIA Status: Acute Current Visit: No Annotation/Comment:: on 2 lpm by nasal canula, maintaining sats. PO2 was 65. continue nebs, encourage prone position (4) Pneumonia due to COVID-19 virus SNOMED Code(s): 270505619967254292 Code(s): U07.1 - COVID-19; J12.82 - PNEUMONIA DUE TO CORONAVIRUS DISEASE 2018 Status: Acute Current Visit: No Annotation/Comment:: currently getting remdesivir an decadron, Incentive spirometry going well. Nebs. Encourage ambulation. On lovenox to prevent DVT - Problem List Review Problem List Initiated/Reviewed/Updated: Yes - My Orders Last 24 Hours: My Active Orders 07/21/21 08:23 Positioning, Patient [RC] ASDIRECTED RT Incentive Spirometry [RC] ASDIRECTED Acetaminophen [TylenoL] 650 mg PO Q4H PRN Isolation [COMM] Stat 07/21/21 08:24 Nurse Communication: Isolation [RC] 08,20 07/21/21 08:28 Oxygen Therapy [RC] ASDIRECTED 07/21/21 08:29 Gallbladder [Abdomen Ltd] [US] Stat 07/21/21 08:30 dexAMETHasone 6 mg PO DAILY 07/21/21 08:41 Admission Status [Patient Status] [ADT] Routine 07/21/21 10:05 VTE/DVT Education [RC] PER UNIT ROUTINE Vital Signs [RC] Q4HWA Resuscitation Status Routine 07/21/21 10:06 Oxygen Therapy [RC] PRN Up ad Diane [RC] ASDIRECTED Albuterol [Proventil Neb Soln] 2.5 mg NEB Q2H PRN Ibuprofen [Motrin] 400 mg PO Q6H PRN Ondansetron [Zofran ODT] 4 mg PO Q4H PRN bisacodyL [Dulcolax] 5 mg PO DAILY PRN 07/21/21 10:07 Pulse Oximetry [RC] Q4HWA 07/21/21 10:09 RT Aerosol Therapy [RC] ASDIRECTED 07/21/21 10:15 Ascorbic Acid [Vitamin C] 500 mg PO BID Cholecalciferol (Vitamin D3) [Vitamin D3] 5,000 unit PO DAILY Enoxaparin [Lovenox] 40 mg SUBCUT DAILY Zinc Gluconate [Zinc] 50 mg PO DAILY 07/21/21 Lunch Regular Diet [DIET] 07/22/21 08:00 Famotidine [Pepcid] 20 mg IVPUSH BID 07/22/21 09:00 Remdesivir 100 mg Sodium Chloride 0.9% [Normal Saline] 100 ml IV Q24H 07/22/21 20:00 Melatonin 6 mg PO BEDTIME Zolpidem [Ambien] 5 mg PO BEDTIME - Assessment Assessment:: Covid 10 pneumonia with hypoxia getting remdesivir elevated lfts, in range for treatment with remdesivir, continue monitoring, Normal ultrasound gerd today insomnia - Plan Plan:: will continue remdesivir and Decadron, continue hourly incentive spirometry, continue nebs and prone position. continue O2, recheck on day 4 of treatment off o2 and if maintain sats with ambulation stay off Will give melatonin and ambien to help with sleep Give pepcid bid for heartburn encourage po fluid and food intake, encourage ambulation in room
[2021-07-22] MEDS: Dexamethasone 2 MG Tab PO SCH (08:49)
[2021-07-22] MEDS: Zinc (Zinc Gluconate) 50 MG Tab PO SCH (08:50)
[2021-07-22] MEDS: Ascorbic Acid 500 MG Tab PO SCH ×2 (08:50→17:45)
[2021-07-22] MEDS: Enoxaparin 40 MG/0.4 ML Syringe SUBCUT SCH (08:50)
[2021-07-22] MEDS: Cholecalciferol (Vitamin D3) 5,000 UNIT Tab PO SCH (08:51)
[2021-07-22] MEDS: Famotidine 20 MG/2 ML SDV IVPUSH SCH ×2 (08:51→18:16)
[2021-07-22] MEDS: Sodium Chloride 0.9% 10 ML Syringe FLUSH PRN ×6 (09:04→17:45)
[2021-07-22] MEDS: REMDESIVIR 100 MG in Sodium Chloride 0.9% 100 ML IV SCH (09:04)
[2021-07-22] MEDS: Albuterol 0.083% 2.5 MG/3 ML Neb Soln NEB SCH ×3 (14:32→21:11)
[2021-07-22] MEDS ORDERED: Albuterol 0.083% 2.5 MG/3 ML Neb Soln NEB PRN (16:00)
[2021-07-22] MEDS: Zolpidem 5 MG Tab PO SCH (21:11)
[2021-07-22] MEDS: Melatonin 3 MG Tab PO SCH (21:11)
[2021-07-23] MEDS: Albuterol 0.083% 2.5 MG/3 ML Neb Soln NEB SCH ×5 (06:15→21:01)
[2021-07-23] MEDS: Enoxaparin 40 MG/0.4 ML Syringe SUBCUT SCH (08:33)
[2021-07-23] MEDS: Dexamethasone 2 MG Tab PO SCH (08:33)
[2021-07-23] MEDS: Zinc (Zinc Gluconate) 50 MG Tab PO SCH (08:34)
[2021-07-23] MEDS: Cholecalciferol (Vitamin D3) 5,000 UNIT Tab PO SCH (08:34)
[2021-07-23] MEDS: Ascorbic Acid 500 MG Tab PO SCH ×2 (08:34→17:06)
[2021-07-23] MEDS: Famotidine 20 MG/2 ML SDV IVPUSH SCH ×2 (08:35→17:06)
[2021-07-23] MEDS: REMDESIVIR 100 MG in Sodium Chloride 0.9% 100 ML IV SCH (08:35)
--- NOTE | 2021-07-23 09:42 | PCM.PN ---
- General Info Date of Service: 07/23/21 Admission Dx/Problem (Free Text): Admission Diagnosis/Problem Admission Diagnosis/Problem Hypoxia due to covid 19 weakness Subjective Update: Patient was admitted yesterday for near syncope, dehydration, covid 19 positive hypoxia. She has been trying to prone, doing several hours a day. She is eating and drinking, still some loose stools but no abdominal pain, black or bloody stools. received first dose of remdesivir and is on oxygen. Feeling a bit better. Having some heartburn, and has not been able to sleep in two weeks. Does not feel it is related to her bipolar disorder, does not usually struggle to sleep, blames some of it on being uncomfortable at home and is more co mfortable here. Has been trying Benadryl at home, did not help. Has never been on other sleep aids. Did not take the melatonin ordered prn last night. 07/23/2021 patient is doing better, incentive spirometer is going well. Day three remdesivir and decadron. eating and drinking. feeling better, still coughing Functional Status: Reports: Tolerating Diet, Ambulating, Incentive Spirometry - Review of Systems General: Reports: Fatigue. Denies: Fever, Weakness HEENT: Denies: Headaches, Post Nasal Drip, Sinus Congestion, Sore Throat, Rhinitis Pulmonary: Reports: Shortness of Breath, Cough. Denies: Sputum, Hemoptysis Cardiovascular: Reports: Dyspnea on Exertion. Denies: Chest Pain, Palpitations Gastrointestinal: Reports: No Symptoms. Denies: Abdominal Pain, Diarrhea, Nausea Genitourinary: Reports: No Symptoms Musculoskeletal: Reports: No Symptoms Skin: Reports: Rash (unchanged) Neurological: Reports: No Symptoms Psychiatric: Reports: No Symptoms - Patient Data Vitals - Most Recent: Last Vital Signs Temp 36.9 C 07/22/21 20:00 Pulse 68 07/22/21 20:00 Resp 14 07/22/21 20:00 BP 116/72 07/22/21 20:00 Pulse Ox 96 07/22/21 20:00 Weight - Most Recent: 53.297 kg I&O - Last 24 Hours: Intake & Output 07/22/21 07/23/21 07/23/21 22:59 06:59 14:59 Intake Total 360 Balance 360 Hubert Results Last 24 Hours: Microbiology 07/21/21 06:50 Aerobic Blood Culture - Preliminary Blood - Venous NO GROWTH AFTER 2 DAYS Anaerobic Blood Culture - Preliminary NO GROWTH AFTER 2 DAYS Med Orders - Current: Current Medications Acetaminophen (Acetaminophen 325 Mg Tab) 650 mg PO Q4H PRN PRN Reason: Fever Greater Than 101 Albuterol (Albuterol 0.083% 2.5 Mg/3 Ml Neb Soln) 2.5 mg NEB Q4H [facility] Last Admin: 07/23/21 06:15 Dose: Not Given Documented by: Albuterol (Albuterol 0.083% 2.5 Mg/3 Ml Neb Soln) 2.5 mg NEB Q2H PRN PRN Reason: Shortness Of Breath/wheezing Ascorbic Acid (Ascorbic Acid 500 Mg Tab) 500 mg PO BID [facility] Last Admin: 07/23/21 08:34 Dose: 500 mg Documented by: Bisacodyl (Bisacodyl 5 Mg Tab) 5 mg PO DAILY PRN PRN Reason: Constipation Cholecalciferol (Cholecalciferol (Vitamin D3) 5,000 Unit Tab) 5,000 unit PO DAILY [facility] Last Admin: 07/23/21 08:34 Dose: 5,000 unit Documented by: Dexamethasone (Dexamethasone 2 Mg Tab) 6 mg PO DAILY [facility] Stop: 07/26/21 08:01 Last Admin: 07/23/21 08:33 Dose: 6 mg Documented by: Enoxaparin Sodium (Enoxaparin 40 Mg/0.4 Ml Syringe) 40 mg SUBCUT DAILY [facility] Last Admin: 07/23/21 08:33 Dose: 40 mg Documented by: Famotidine (Famotidine 20 Mg/2 Ml Sdv) 20 mg IVPUSH BID [facility] Last Admin: 07/23/21 08:35 Dose: 20 mg Documented by: Sodium Chloride (Normal Saline) 1,000 mls @ 999 mls/hr IV ASDIRECTED [facility] Last Admin: 07/21/21 06:50 Dose: 999 mls/hr Documented by: Sodium Chloride (Normal Saline) 1,000 mls @ 999 mls/hr IV ASDIRECTED [facility] Last Admin: 07/21/21 07:55 Dose: 999 mls/hr Documented by: Remdesivir 100 mg/ Sodium (Chloride) 100 mls @ 100 mls/hr IV Q24H [facility] Stop: 07/25/21 09:59 Last Admin: 07/23/21 08:35 Dose: 100 mls/hr Documented by: Ibuprofen (Ibuprofen 400 Mg Tab) 400 mg PO Q6H PRN PRN Reason: Pain (mild 1-3) Melatonin (Melatonin 3 Mg Tab) 6 mg PO BEDTIME [facility] Last Admin: 07/22/21 21:11 Dose: 6 mg Documented by: Ondansetron HCl (Ondansetron 4 Mg Tab.Dis) 4 mg PO Q4H PRN PRN Reason: Nausea/Vomiting Last Admin: 07/22/21 05:53 Dose: 4 mg Documented by: Sodium Chloride (Sodium Chloride 0.9% 10 Ml Syringe) 10 ml FLUSH ASDIRECTED PRN PRN Reason: Keep Vein Open Last Admin: 07/22/21 17:45 Dose: 10 ml Documented by: Zinc Gluconate (Zinc (Zinc Gluconate) 50 Mg Tab) 50 mg PO DAILY [facility] Last Admin: 07/23/21 08:34 Dose: 50 mg Documented by: Zolpidem Tartrate (Zolpidem 5 Mg Tab) 5 mg PO BEDTIME [facility] Last Admin: 07/22/21 21:11 Dose: 5 mg Documented by: Discontinued Medications Albuterol (Albuterol 0.083% 2.5 Mg/3 Ml Neb Soln) 2.5 mg NEB Q2H PRN PRN Reason: Shortness Of Breath/wheezing Last Admin: 07/22/21 04:08 Dose: 2.5 mg Documented by: Remdesivir 200 mg/ Sodium (Chloride) 250 mls @ 250 mls/hr IV ONETIME ONE Stop: 07/21/21 09:22 Last Admin: 07/21/21 09:58 Dose: 250 mls/hr Documented by: Melatonin (Melatonin 3 Mg Tab) 6 mg PO BEDTIME PRN PRN Reason: Insomnia - Exam Quality Assessment: Supplemental Oxygen General: Alert, Oriented HEENT: Pupils Equal, EOMI Neck: Supple Lungs: Decreased Breath Sounds (bases), Crackles (minimal bases) Cardiovascular: Regular Rate, Regular Rhythm GI/Abdominal Exam: Normal Bowel Sounds, Soft Extremities: Normal Inspection, Normal Range of Motion, Non-Tender Neurological: No New Focal Deficit - Patient Data Lab Results Last 24 hrs: labs pending at note time Result Diagrams: 07/22/21 07:30 07/22/21 07:30 Hubert Results Last 24 hrs: Microbiology 07/21/21 06:50 Aerobic Blood Culture - Preliminary Blood - Venous NO GROWTH AFTER 2 DAYS Anaerobic Blood Culture - Preliminary NO GROWTH AFTER 2 DAYS Sepsis Event Note - Evaluation Sepsis Screening Result: No Definite Risk - Problem List & Annotations (1) Elevated LFTs SNOMED Code(s): 173788374 Code(s): R79.89 - OTHER SPECIFIED ABNORMAL FINDINGS OF BLOOD CHEMISTRY Status: Acute Current Visit: Yes Annotation/Comment:: continue to monitor Probable due to covid, improving with hydation, still in the acceptable range to continue remdesivir. ultrasound yesterday was negative for abcute hepatobiliary process. Continue to monitor (2) Insomnia SNOMED Code(s): 103868684 Code(s): G47.00 - INSOMNIA, UNSPECIFIED Status: Acute Current Visit: Yes Qualifiers: Insomnia type: other insomnia Qualified Code(s): G47.09 - Other insomnia Annotation/Comment:: Much improved, possible some hallucinations/talking but feels better rested on ambien and melatonin Not had problems with this in the past. Since having covid not able to sleep, does not think it has anything to do with her bipolar, no manic episodes in the past. Tried benaryl at home, didn't work. Has melatonin prn and will give ambien tonight and try (3) Hypoxia SNOMED Code(s): 950306951 Code(s): R09.02 - HYPOXEMIA Status: Acute Current Visit: No Annotation/Comment:: Improved on 1 lpm will attempt off today. Sitting bedside is 91%. WIll have her ambulate more frequently and check sats on 2 lpm by nasal canula, maintaining sats. PO2 was 65. continue nebs, encourage prone position (4) Pneumonia due to COVID-19 virus SNOMED Code(s): 750806237482235290 Code(s): U07.1 - COVID-19; J12.82 - PNEUMONIA DUE TO CORONAVIRUS DISEASE 2019 Status: Acute Current Visit: No Annotation/Comment:: 07/23/2021 will continue course, needs to complete 5 days. continue nebs, will need for home currently getting remdesivir an decadron, Incentive spirometry going well. Nebs. Encourage ambulation. On lovenox to prevent DVT - Problem List Review Problem List Initiated/Reviewed/Updated: Yes - My Orders Last 24 Hours: My Active Orders 07/22/21 09:00 Remdesivir 100 mg Sodium Chloride 0.9% [Normal Saline] 100 ml IV Q24H 07/22/21 14:00 Albuterol [Proventil Neb Soln] 2.5 mg NEB Q4H 07/22/21 16:00 Albuterol [Proventil Neb Soln] 2.5 mg NEB Q2H PRN 07/22/21 20:00 Melatonin 6 mg PO BEDTIME Zolpidem [Ambien] 5 mg PO BEDTIME - Assessment Assessment:: doing well, covid 19 pneumonia continue cares Covid 10 pneumonia with hypoxia getting remdesivir elevated lfts, in range for treatment with remdesivir, continue monitoring, Normal ultrasound gerd today insomnia - Plan Plan:: 07/23/2021 trial off oxygen today, ambulate hourly with incentive spirometry, continue nebs. will continue remdesivir and Decadron, continue hourly incentive spirometry, continue nebs and prone position. continue O2, recheck on day 4 of treatment off o2 and if maintain sats with ambulation stay off Will give melatonin and ambien to help with sleep Give pepcid bid for heartburn encourage po fluid and food intake, encourage ambulation in room
[2021-07-23 10:48] LABS: CHLORIDE,CL 109 mmol/L (98-107); SODIUM,NA 146 mmol/L (136-145)
[2021-07-23 10:49] LABS: ANION GAP 14.5 meq/L (7-15)
[2021-07-23] MEDS: Melatonin 3 MG Tab PO SCH (20:55)
[2021-07-23] MEDS: Zolpidem 5 MG Tab PO SCH (20:55)
[2021-07-24] MEDS: Albuterol 0.083% 2.5 MG/3 ML Neb Soln NEB SCH ×3 (03:32→11:09)
[2021-07-24] MEDS: Dexamethasone 2 MG Tab PO SCH (07:55)
[2021-07-24] MEDS: Enoxaparin 40 MG/0.4 ML Syringe SUBCUT SCH (07:55)
[2021-07-24] MEDS: Ascorbic Acid 500 MG Tab PO SCH (07:56)
[2021-07-24] MEDS: Cholecalciferol (Vitamin D3) 5,000 UNIT Tab PO SCH (07:56)
[2021-07-24] MEDS: Zinc (Zinc Gluconate) 50 MG Tab PO SCH (07:56)
[2021-07-24] MEDS: Famotidine 20 MG/2 ML SDV IVPUSH SCH (07:56)
[2021-07-24] MEDS: Sodium Chloride 0.9% 10 ML Syringe FLUSH PRN ×3 (07:59→11:08)
[2021-07-24 08:26] LABS: CHLORIDE,CL 108 mmol/L (98-107); SODIUM,NA 144 mmol/L (136-145)
[2021-07-24 08:30] LABS: ANION GAP 10.6 meq/L (7-15)
[2021-07-24] MEDS: REMDESIVIR 100 MG in Sodium Chloride 0.9% 100 ML IV SCH (09:54)
--- NOTE | 2021-07-24 12:39 | PCM.PN ---
- General Info Date of Service: 07/24/21 Admission Dx/Problem (Free Text): Admission Diagnosis/Problem Admission Diagnosis/Problem Hypoxia due to covid 19 weakness Subjective Update: Hospital Day #3 Overall feeling better. Has been off oxygen since yesterday. Had one episode this AM of her sat level being 88% after ambulation, but then rishing to 91% with deep breathing. Appetite okay. - Review of Systems General: Reports: No Symptoms HEENT: Reports: No Symptoms Pulmonary: Reports: Cough Cardiovascular: Reports: No Symptoms Gastrointestinal: Reports: No Symptoms Genitourinary: Reports: No Symptoms Musculoskeletal: Reports: No Symptoms Skin: Reports: No Symptoms Neurological: Reports: No Symptoms Psychiatric: Reports: No Symptoms - Patient Data Vitals - Most Recent: Last Vital Signs Temp 37.0 C 07/24/21 07:53 Pulse 94 07/24/21 11:04 Resp 18 07/24/21 07:53 BP 115/68 07/24/21 07:53 Pulse Ox 94 L 07/24/21 11:04 Weight - Most Recent: 52.844 kg I&O - Last 24 Hours: Intake & Output 07/23/21 07/24/21 07/24/21 22:59 06:59 14:59 Intake Total 1140 Balance 1140 Lab Results Last 24 Hours: Laboratory Results - last 24 hr 07/24/21 07/24/21 Range/Units 07:46 07:46 WBC 5.9 (4.0-10.2) K/uL RBC 4.15 (3.77-5.09) M/uL Hgb 12.9 (11.7-15.5) g/dL Hct 39.4 (34.0-46.0) % MCV 94.9 (84.0-98.0) fL MCH 31.1 (28.2-33.3) pg MCHC 32.7 (31.7-36.0) g/dL RDW 13.0 (11.2-14.1) % Plt Count 441 H (150-350) K/uL Neut % (Auto) 57.0 (45.0-80.0) % Lymph % (Auto) 27.3 (10.0-50.0) % Cuming % (Auto) 15.5 H (2.0-14.0) % Eos % (Auto) 0.2 (0.0-5.0) % Baso % (Auto) 0.0 (0.0-2.0) % Neut # (Auto) 3.39 (1.40-7.00) K/uL Lymph # (Auto) 1.62 (0.50-3.50) K/uL Cuming # (Auto) 0.92 (0.00-1.00) K/uL Eos # (Auto) 0.01 (0.00-0.50) K/uL Baso # (Auto) 0.00 (0.00-0.20) K/uL Sodium 144 (136-145) mmol/L Potassium 3.8 (3.5-5.1) mmol/L Chloride 108 H (98-107) mmol/L Carbon Dioxide 29.2 (21.0-32.0) mmol/L Anion Gap 10.6 (7-15) meq/L BUN 11 (7-18) mg/dL Creatinine 0.82 (0.51-1.17) mg/dL Est Cr Clr Drug Dosing 66.36 mL/min Estimated GFR (MDRD) > 60 mL/min Glucose 83 (70-99) mg/dL Calcium 8.8 (8.5-10.1) mg/dL Total Bilirubin 0.4 (0.2-1.0) mg/dL Direct Bilirubin 0.1 (0.0-0.2) mg/dL AST 60 H (15-37) U/L ALT 144 H (12-78) U/L Alkaline Phosphatase 107 (46-116) IU/L Total Protein 6.8 (6.4-8.2) g/dL Albumin 3.1 L (3.4-5.0) g/dL Hubert Results Last 24 Hours: Microbiology 07/21/21 06:50 Aerobic Blood Culture - Preliminary Blood - Venous NO GROWTH AFTER 3 DAYS Anaerobic Blood Culture - Preliminary NO GROWTH AFTER 3 DAYS Med Orders - Current: Current Medications Acetaminophen (Acetaminophen 325 Mg Tab) 650 mg PO Q4H PRN PRN Reason: Fever Greater Than 101 Albuterol (Albuterol 0.083% 2.5 Mg/3 Ml Neb Soln) 2.5 mg NEB Q4H [facility] Last Admin: 07/24/21 11:09 Dose: 2.5 mg Documented by: Albuterol (Albuterol 0.083% 2.5 Mg/3 Ml Neb Soln) 2.5 mg NEB Q2H PRN PRN Reason: Shortness Of Breath/wheezing Ascorbic Acid (Ascorbic Acid 500 Mg Tab) 500 mg PO BID [facility] Last Admin: 07/24/21 07:56 Dose: 500 mg Documented by: Bisacodyl (Bisacodyl 5 Mg Tab) 5 mg PO DAILY PRN PRN Reason: Constipation Cholecalciferol (Cholecalciferol (Vitamin D3) 5,000 Unit Tab) 5,000 unit PO DAILY [facility] Last Admin: 07/24/21 07:56 Dose: 5,000 unit Documented by: Dexamethasone (Dexamethasone 2 Mg Tab) 6 mg PO DAILY [facility] Stop: 07/26/21 08:01 Last Admin: 07/24/21 07:55 Dose: 6 mg Documented by: Enoxaparin Sodium (Enoxaparin 40 Mg/0.4 Ml Syringe) 40 mg SUBCUT DAILY [facility] Last Admin: 07/24/21 07:55 Dose: 40 mg Documented by: Famotidine (Famotidine 20 Mg/2 Ml Sdv) 20 mg IVPUSH BID [facility] Last Admin: 07/24/21 07:56 Dose: 20 mg Documented by: Sodium Chloride (Normal Saline) 1,000 mls @ 999 mls/hr IV ASDIRECTED [facility] Last Admin: 07/21/21 06:50 Dose: 999 mls/hr Documented by: Sodium Chloride (Normal Saline) 1,000 mls @ 999 mls/hr IV ASDIRECTED [facility] Last Admin: 07/21/21 07:55 Dose: 999 mls/hr Documented by: Remdesivir 100 mg/ Sodium (Chloride) 100 mls @ 100 mls/hr IV Q24H [facility] Stop: 07/25/21 09:59 Last Admin: 07/24/21 09:54 Dose: 100 mls/hr Documented by: Ibuprofen (Ibuprofen 400 Mg Tab) 400 mg PO Q6H PRN PRN Reason: Pain (mild 1-3) Melatonin (Melatonin 3 Mg Tab) 6 mg PO BEDTIME [facility] Last Admin: 07/23/21 20:55 Dose: 6 mg Documented by: Ondansetron HCl (Ondansetron 4 Mg Tab.Dis) 4 mg PO Q4H PRN PRN Reason: Nausea/Vomiting Last Admin: 07/22/21 05:53 Dose: 4 mg Documented by: Sodium Chloride (Sodium Chloride 0.9% 10 Ml Syringe) 10 ml FLUSH ASDIRECTED PRN PRN Reason: Keep Vein Open Last Admin: 07/24/21 11:08 Dose: 10 ml Documented by: Zinc Gluconate (Zinc (Zinc Gluconate) 50 Mg Tab) 50 mg PO DAILY [facility] Last Admin: 07/24/21 07:56 Dose: 50 mg Documented by: Zolpidem Tartrate (Zolpidem 5 Mg Tab) 5 mg PO BEDTIME [facility] Last Admin: 07/23/21 20:55 Dose: 5 mg Documented by: Discontinued Medications Albuterol (Albuterol 0.083% 2.5 Mg/3 Ml Neb Soln) 2.5 mg NEB Q2H PRN PRN Reason: Shortness Of Breath/wheezing Last Admin: 07/22/21 04:08 Dose: 2.5 mg Documented by: Remdesivir 200 mg/ Sodium (Chloride) 250 mls @ 250 mls/hr IV ONETIME ONE Stop: 07/21/21 09:22 Last Admin: 07/21/21 09:58 Dose: 250 mls/hr Documented by: Melatonin (Melatonin 3 Mg Tab) 6 mg PO BEDTIME PRN PRN Reason: Insomnia - Exam General: Alert, Oriented, Cooperative, No Acute Distress (Adult female, looks good) HEENT: Mucous Membr. Moist/Cleary Neck: Supple Lungs: Clear to Auscultation, Normal Respiratory Effort Cardiovascular: Regular Rate, Regular Rhythm GI/Abdominal Exam: Normal Bowel Sounds, Soft, Non-Tender (Female) Exam: Deferred Back Exam: Normal Inspection Extremities: Normal Inspection, Normal Range of Motion, No Pedal Edema, Normal Capillary Refill Skin: Warm, Dry, Intact - Patient Data Lab Results Last 24 hrs: Laboratory Results - last 24 hr 07/24/21 07/24/21 Range/Units 07:46 07:46 WBC 5.9 (4.0-10.2) K/uL RBC 4.15 (3.77-5.09) M/uL Hgb 12.9 (11.7-15.5) g/dL Hct 39.4 (34.0-46.0) % MCV 94.9 (84.0-98.0) fL MCH 31.1 (28.2-33.3) pg MCHC 32.7 (31.7-36.0) g/dL RDW 13.0 (11.2-14.1) % Plt Count 441 H (150-350) K/uL Neut % (Auto) 57.0 (45.0-80.0) % Lymph % (Auto) 27.3 (10.0-50.0) % Cuming % (Auto) 15.5 H (2.0-14.0) % Eos % (Auto) 0.2 (0.0-5.0) % Baso % (Auto) 0.0 (0.0-2.0) % Neut # (Auto) 3.39 (1.40-7.00) K/uL Lymph # (Auto) 1.62 (0.50-3.50) K/uL Cuming # (Auto) 0.92 (0.00-1.00) K/uL Eos # (Auto) 0.01 (0.00-0.50) K/uL Baso # (Auto) 0.00 (0.00-0.20) K/uL Sodium 144 (136-145) mmol/L Potassium 3.8 (3.5-5.1) mmol/L Chloride 108 H (98-107) mmol/L Carbon Dioxide 29.2 (21.0-32.0) mmol/L Anion Gap 10.6 (7-15) meq/L BUN 11 (7-18) mg/dL Creatinine 0.82 (0.51-1.17) mg/dL Est Cr Clr Drug Dosing 66.36 mL/min Estimated GFR (MDRD) > 60 mL/min Glucose 83 (70-99) mg/dL Calcium 8.8 (8.5-10.1) mg/dL Total Bilirubin 0.4 (0.2-1.0) mg/dL Direct Bilirubin 0.1 (0.0-0.2) mg/dL AST 60 H (15-37) U/L ALT 144 H (12-78) U/L Alkaline Phosphatase 107 (46-116) IU/L Total Protein 6.8 (6.4-8.2) g/dL Albumin 3.1 L (3.4-5.0) g/dL Result Diagrams: 07/24/21 07:46 07/24/21 07:46 Hubert Results Last 24 hrs: Microbiology 07/21/21 06:50 Aerobic Blood Culture - Preliminary Blood - Venous NO GROWTH AFTER 3 DAYS Anaerobic Blood Culture - Preliminary NO GROWTH AFTER 3 DAYS Sepsis Event Note - Evaluation Sepsis Screening Result: No Definite Risk - Focused Exam Vital Signs: Vital Signs Temp Pulse Resp BP Pulse Ox 07/24/21 11:04 94 94 L 07/24/21 09:48 94 L 07/24/21 07:54 92 L 07/24/21 07:53 37.0 C 73 18 115/68 92 L - Problem List & Annotations (1) Pneumonia due to COVID-19 virus SNOMED Code(s): 357051347176969339 Code(s): U07.1 - COVID-19; J12.82 - PNEUMONIA DUE TO CORONAVIRUS DISEASE 2018 Status: Acute Current Visit: No Annotation/Comment:: Hospital Day #3 Has now received 4 doses of Remdisivir and is stable on room air. Will send patient home with an Albuterol inhaler. Continue Incentive Spirometry at home. Plan ASA 81mg qd x 6 weeks. Continue Dexamethsone x 7 more days. (2) Elevated LFTs SNOMED Code(s): 985069448 Code(s): R79.89 - OTHER SPECIFIED ABNORMAL FINDINGS OF BLOOD CHEMISTRY Status: Acute Current Visit: Yes Annotation/Comment:: Trending downwards, most likely related to COVID (3) Insomnia SNOMED Code(s): 740759906 Code(s): G47.00 - INSOMNIA, UNSPECIFIED Status: Acute Current Visit: Yes Qualifiers: Insomnia type: other insomnia Qualified Code(s): G47.09 - Other insomnia Annotation/Comment:: Not had problems with this in the past. Since having covid not able to sleep, does not think it has anything to do with her bipolar, no manic episodes in the past. Advise melatonin prn at home and hoping sleep will be better at home. (4) Hypoxia SNOMED Code(s): 327178456 Code(s): R09.02 - HYPOXEMIA Status: Acute Current Visit: No Annotation/Comment:: Improved on 1 lpm will attempt off today. Sitting bedside is 91%. WIll have her ambulate more frequently and check sats on 2 lpm by nasal canula, maintaining sats. PO2 was 65. continue nebs, encourage prone position - Problem List Review Problem List Initiated/Reviewed/Updated: Yes - Plan Plan:: As above Discharge to home
--- NOTE | 2021-07-24 12:54 | PCM.DCSUM1 ---
Discharge Summary - Hospital Course HPI Initial Comments: Patient presented to the ED with weakness, lightheadedness, shortness of breath and a COVID positive test about 2 weeks ago. She was unvaccinated and belives she became infected at a family gathering for [employer]. Entire family became ill, she was tested about a week after onset of cough, fevers, runny nose, nasal congestion, body aches, loss of smell and taste. Was not been eating or drinking well. [place] very weak, could not lay flat. Sats at triage were 89% with exertion and she was almost ready to pass out on arrival. Brief History: Patient was admitted yesterday for near syncope, dehydration, covid 19 positive hypoxia. She has been proning doing several hours a day. She started eating and drinking and feeling better. Still some loose stools but no abdominal pain, black or bloody stools. Received 4 doses dose of remdesivir and was weaned off oxygen on Hospital Day #2. Did have some insomnia while hospitalized and used melatonin and ambien. Diagnosis: Stroke: No - Discharge Data Discharge Date: 07/24/21 Discharge Disposition: Home, Self-Care 01 Condition: Good - Referral to Home Health Primary Care Physician: Basilia Bowman NP - Discharge Diagnosis/Problem(s) (1) Pneumonia due to COVID-19 virus SNOMED Code(s): 607204680215869347 ICD Code: U07.1 - COVID-19; J12.82 - PNEUMONIA DUE TO CORONAVIRUS DISEASE 2019 Status: Acute Current Visit: No Problem Details: Hospital Day #3 Has now received 4 doses of Remdisivir and is stable on room air. Will send patient home with an Albuterol inhaler. Continue Incentive Spirometry at home. Plan ASA 81mg qd x 6 weeks. Continue Dexamethsone x 7 more days. (2) Elevated LFTs SNOMED Code(s): 695612716 ICD Code: R79.89 - OTHER SPECIFIED ABNORMAL FINDINGS OF BLOOD CHEMISTRY Status: Acute Current Visit: Yes Problem Details: Trending downwards, most likely related to COVID (3) Insomnia SNOMED Code(s): 882019128 ICD Code: G47.00 - INSOMNIA, UNSPECIFIED Status: Acute Current Visit: Yes Problem Details: Not had problems with this in the past. Since having covid not able to sleep, does not think it has anything to do with her bipolar, no manic episodes in the past. Advise melatonin prn at home and hoping sleep will be better at home. Qualifiers: Insomnia type: other insomnia Qualified Code(s): G47.09 - Other insomnia (4) Hypoxia SNOMED Code(s): 995051170 ICD Code: R09.02 - HYPOXEMIA Status: Acute Current Visit: No Problem Details: Room air now since yesterday AM. - Patient Instructions Diet: Usual Diet as Tolerated Activity: As Tolerated Activity, Other: Prone positioning as much as possible will help with your COVID recovery Driving: May Drive Today Showering/Bathing: May Shower Other/Special Instructions: Follow up with your PCP for any further concerns - Discharge Plan *PRESCRIPTION DRUG MONITORING PROGRAM REVIEWED*: Not Applicable *COPY OF PRESCRIPTION DRUG MONITORING REPORT IN PATIENT DELTA: Not Applicable Prescriptions/Med Rec: Albuterol Sulfate [Albuterol Sulfate Hfa] 2 inh IH Q4HR PRN #18 [email or web address] PRN Reason: Shortness Of Breath Aspirin 81 mg PO QAM 45 Days tab.chew dexAMETHasone [Dexamethasone] 6 mg PO DAILY 7 Days tablet Home Medications: Home Meds Albuterol Sulfate [Albuterol Sulfate Hfa] 2 inh IH Q4HR PRN #18 [email or web address] 07/24/21 [Rx] Ascorbic Acid [Vitamin C] 500 mg PO BID tablet 07/24/21 [Rx] Aspirin 81 mg PO QAM 45 Days tab.chew 07/24/21 [Rx] Cholecalciferol (Vitamin D3) [Vitamin D3] 5,000 unit PO DAILY tablet 07/24/21 [Rx] Melatonin 6 mg PO BEDTIME tablet 07/24/21 [Rx] Zinc Gluconate [Zinc] 50 mg PO DAILY tablet 07/24/21 [Rx] dexAMETHasone [Dexamethasone] 6 mg PO DAILY 7 Days tablet 07/24/21 [Rx] Oxygen Therapy Mode: Room Air Patient Handouts: Hypoxemia, 10 Things You Can Do to Manage Your COVID-19 Symptoms at Home - CDC (02/21/2021), Symptoms of COVID-19 - [facility] (09/30/2020) Forms: ED Department Discharge Referrals: Basilia Bowman NP [Primary Care Provider] - - Discharge Summary/Plan Comment DC Time >30 min.: Yes Total # of Minutes for Discharge Time: 45 - Patient Data Vitals - Most Recent: Last Vital Signs Temp 37.0 C 07/24/21 07:53 Pulse 94 07/24/21 11:04 Resp 18 07/24/21 07:53 BP 115/68 07/24/21 07:53 Pulse Ox 94 L 07/24/21 11:04 Weight - Most Recent: 52.844 kg I&O - Last 24 hours: Intake & Output 07/23/21 07/24/21 07/24/21 22:59 06:59 14:59 Intake Total 1140 Balance 1140 Lab Results - Last 24 hrs: Laboratory Results - last 24 hr 07/24/21 07/24/21 Range/Units 07:46 07:46 WBC 5.9 (4.0-10.2) K/uL RBC 4.15 (3.77-5.09) M/uL Hgb 12.9 (11.7-15.5) g/dL Hct 39.4 (34.0-46.0) % MCV 94.9 (84.0-98.0) fL MCH 31.1 (28.2-33.3) pg MCHC 32.7 (31.7-36.0) g/dL RDW 13.0 (11.2-14.1) % Plt Count 441 H (150-350) K/uL Neut % (Auto) 57.0 (45.0-80.0) % Lymph % (Auto) 27.3 (10.0-50.0) % Perry % (Auto) 15.5 H (2.0-14.0) % Eos % (Auto) 0.2 (0.0-5.0) % Baso % (Auto) 0.0 (0.0-2.0) % Neut # (Auto) 3.39 (1.40-7.00) K/uL Lymph # (Auto) 1.62 (0.50-3.50) K/uL Perry # (Auto) 0.92 (0.00-1.00) K/uL Eos # (Auto) 0.01 (0.00-0.50) K/uL Baso # (Auto) 0.00 (0.00-0.20) K/uL Sodium 144 (136-145) mmol/L Potassium 3.8 (3.5-5.1) mmol/L Chloride 108 H (98-107) mmol/L Carbon Dioxide 29.2 (21.0-32.0) mmol/L Anion Gap 10.6 (7-15) meq/L BUN 11 (7-18) mg/dL Creatinine 0.82 (0.51-1.17) mg/dL Est Cr Clr Drug Dosing 66.36 mL/min Estimated GFR (MDRD) > 60 mL/min Glucose 83 (70-99) mg/dL Calcium 8.8 (8.5-10.1) mg/dL Total Bilirubin 0.4 (0.2-1.0) mg/dL Direct Bilirubin 0.1 (0.0-0.2) mg/dL AST 60 H (15-37) U/L ALT 144 H (12-78) U/L Alkaline Phosphatase 107 (46-116) IU/L Total Protein 6.8 (6.4-8.2) g/dL Albumin 3.1 L (3.4-5.0) g/dL [facility] Results - Last 24 hrs: Microbiology 07/21/21 06:50 Aerobic Blood Culture - Preliminary Blood - Venous NO GROWTH AFTER 3 DAYS Anaerobic Blood Culture - Preliminary NO GROWTH AFTER 3 DAYS Med Orders - Current: Current Medications Acetaminophen (Acetaminophen 325 Mg Tab) 650 mg PO Q4H PRN PRN Reason: Fever Greater Than 101 Albuterol (Albuterol 0.083% 2.5 Mg/3 Ml Neb Soln) 2.5 mg NEB Q4H [facility] Last Admin: 07/24/21 11:09 Dose: 2.5 mg Documented by: Albuterol (Albuterol 0.083% 2.5 Mg/3 Ml Neb Soln) 2.5 mg NEB Q2H PRN PRN Reason: Shortness Of Breath/wheezing Ascorbic Acid (Ascorbic Acid 500 Mg Tab) 500 mg PO BID [facility] Last Admin: 07/24/21 07:56 Dose: 500 mg Documented by: Bisacodyl (Bisacodyl 5 Mg Tab) 5 mg PO DAILY PRN PRN Reason: Constipation Cholecalciferol (Cholecalciferol (Vitamin D3) 5,000 Unit Tab) 5,000 unit PO DAILY [facility] Last Admin: 07/24/21 07:56 Dose: 5,000 unit Documented by: Dexamethasone (Dexamethasone 2 Mg Tab) 6 mg PO DAILY [facility] Stop: 07/26/21 08:01 Last Admin: 07/24/21 07:55 Dose: 6 mg Documented by: Enoxaparin Sodium (Enoxaparin 40 Mg/0.4 Ml Syringe) 40 mg SUBCUT DAILY [facility] Last Admin: 07/24/21 07:55 Dose: 40 mg Documented by: Famotidine (Famotidine 20 Mg/2 Ml Sdv) 20 mg IVPUSH BID [facility] Last Admin: 07/24/21 07:56 Dose: 20 mg Documented by: Sodium Chloride (Normal Saline) 1,000 mls @ 999 mls/hr IV ASDIRECTED [facility] Last Admin: 07/21/21 06:50 Dose: 999 mls/hr Documented by: Sodium Chloride (Normal Saline) 1,000 mls @ 999 mls/hr IV ASDIRECTED [facility] Last Admin: 07/21/21 07:55 Dose: 999 mls/hr Documented by: Remdesivir 100 mg/ Sodium (Chloride) 100 mls @ 100 mls/hr IV Q24H [facility] Stop: 07/25/21 09:59 Last Admin: 07/24/21 09:54 Dose: 100 mls/hr Documented by: Ibuprofen (Ibuprofen 400 Mg Tab) 400 mg PO Q6H PRN PRN Reason: Pain (mild 1-3) Melatonin (Melatonin 3 Mg Tab) 6 mg PO BEDTIME [facility] Last Admin: 07/23/21 20:55 Dose: 6 mg Documented by: Ondansetron HCl (Ondansetron 4 Mg Tab.Dis) 4 mg PO Q4H PRN PRN Reason: Nausea/Vomiting Last Admin: 07/22/21 05:53 Dose: 4 mg Documented by: Sodium Chloride (Sodium Chloride 0.9% 10 Ml Syringe) 10 ml FLUSH ASDIRECTED PRN PRN Reason: Keep Vein Open Last Admin: 07/24/21 11:08 Dose: 10 ml Documented by: Zinc Gluconate (Zinc (Zinc Gluconate) 50 Mg Tab) 50 mg PO DAILY [facility] Last Admin: 07/24/21 07:56 Dose: 50 mg Documented by: Zolpidem Tartrate (Zolpidem 5 Mg Tab) 5 mg PO BEDTIME [facility] Last Admin: 07/23/21 20:55 Dose: 5 mg Documented by: Discontinued Medications Albuterol (Albuterol 0.083% 2.5 Mg/3 Ml Neb Soln) 2.5 mg NEB Q2H PRN PRN Reason: Shortness Of Breath/wheezing Last Admin: 07/22/21 04:08 Dose: 2.5 mg Documented by: Remdesivir 200 mg/ Sodium (Chloride) 250 mls @ 250 mls/hr IV ONETIME ONE Stop: 07/21/21 09:22 Last Admin: 07/21/21 09:58 Dose: 250 mls/hr Documented by: Melatonin (Melatonin 3 Mg Tab) 6 mg PO BEDTIME PRN PRN Reason: Insomnia
[2021-07-24 13:20] VITALS: BP 110/70; PULSE 105
== END 2021-07-24 13:30 | disposition home or self-care (01) | DRG 177 ==
LOC: LL.ED 06:11 → LL.MS 08:50
PROVIDERS: ADMIT Physician Assistant; ATTEND Physician Assistant
PROC: 8E0ZXY6 Isolation (ICD-10-PCS; principal; 2021-07-21)
PROC: XW033E5 Introduction of Remdesivir Anti-infective into Peripheral Vein, Percutaneous Approach, New Technology Group 5 (ICD-10-PCS; 2021-07-21)
PROC: 3E0333Z Introduction of Anti-inflammatory into Peripheral Vein, Percutaneous Approach (ICD-10-PCS; 2021-07-21)
DX: U07.1 COVID-19 (principal); J12.82 Pneumonia due to coronavirus disease 2019; E86.0 Dehydration; G47.09 Other insomnia; R09.02 Hypoxemia; Z90.710 Acquired absence of both cervix and uterus
CPT/HCPCS: 0241U; 36415; 36600; 71045; 76705; 80053; 81003; 82248; 82803; 83605; 84484; 85025; 85027; 85379; 86140; 87040; 93005; 93010; 94640; 96365; 99223; 99232; 99233; 99239; 99285-25; A9270-GY; J1650; J3490; J7030; J7050; J7613-GY; J8540

== ENCOUNTER 2021-07-28 09:37 | Emergency (ER) | payer SELFPAY ==
--- NOTE | 2021-07-28 10:36 | EDM.PDOC ---
ED HPI GENERAL MEDICAL PROBLEM - General Chief Complaint: ENT Problem Stated Complaint: "dry throat" Time Seen by Provider: 07/28/21 09:40 Source of Information: Reports: Patient, Family (mom and dad) History Limitations: Reports: No Limitations - History of Present Illness Onset: Today, Sudden Onset Date: 07/28/21 Duration: Hour(s):, Improving Location: Reports: Other (throat is dry) Quality: Reports: Ache Improves with: Reports: Other (drinking water) Worsens with: Reports: Breathing, Eating Context: Reports: Other (took benadryl last night. ) Associated Symptoms: Reports: Other (anxiety) - Related Data Allergies Allergy/AdvReac Type Severity Reaction Status Date / Time cefuroxime Allergy Difficulty Verified 07/28/21 09:38 Swallowing Sulfa (Sulfonamide Allergy Airway Verified 07/28/21 09:38 Antibiotics) Tightness sulfamethoxazole Allergy Airway Verified 07/28/21 09:38 [From Bactrim] Tightness trimethoprim [From Bactrim] Allergy Airway Verified 07/28/21 09:38 Tightness Home Meds: Home Meds Albuterol Sulfate [Albuterol Sulfate Hfa] 2 inh IH Q4HR PRN #18 [email or web address] 07/24/21 [Rx] Ascorbic Acid [Vitamin C] 500 mg PO BID tablet 07/24/21 [Rx] Aspirin 81 mg PO QAM 45 Days tab.chew 07/24/21 [Rx] Cholecalciferol (Vitamin D3) [Vitamin D3] 5,000 unit PO DAILY tablet 07/24/21 [Rx] Melatonin 6 mg PO BEDTIME tablet 07/24/21 [Rx] Zinc Gluconate [Zinc] 50 mg PO DAILY tablet 07/24/21 [Rx] dexAMETHasone [Dexamethasone] 6 mg PO DAILY 7 Days tablet 07/24/21 [Rx] Past Medical History Psychiatric History: Reports: Bipolar (currently untreated) - Past Surgical History HEENT Surgical History: Reports: Oral Surgery Female Surgical History: Reports: Hysterectomy Social & Family History - Family History Family Medical History: No Pertinent Family History Psychiatric: Reports: Depression (father) - Tobacco Use Tobacco Use Status *Q: Never Tobacco User - Caffeine Use Caffeine Use: Reports: Coffee - Alcohol Use Alcohol Use History: No - Recreational Drug Use Recreational Drug Use: No Drug Use in Last 12 Months: No - Sexual History Sexual History: Reports: Opposite Sex Partner, Other (See Below) (not currently sexually active) - Living Situation & Occupation Living situation: Reports: , with Family (currently from . she and her 12 year old daughter live with her parents.) Occupation: Employed (hairdresser) ED ROS ENT - Review of Systems Review Of Systems: See Below Constitutional: Reports: No Symptoms HEENT: Reports: Other (dry throat) Respiratory: Reports: No Symptoms. Denies: Shortness of Breath, Wheezing, Pleuritic Chest Pain, Cough, Sputum Cardiovascular: Reports: No Symptoms Endocrine: Reports: No Symptoms GI/Abdominal: Reports: No Symptoms : Reports: No Symptoms Musculoskeletal: Reports: Other (generalized lower extremity pain- not reproducible) Skin: Reports: No Symptoms Neurological: Reports: No Symptoms Psychiatric: Reports: Anxiety, Depression Hematologic/Lymphatic: Reports: No Symptoms Immunologic: Reports: No Symptoms ED EXAM, ENT - Physical Exam Exam: See Below Exam Limited By: No Limitations General Appearance: Alert, WD/WN, No Apparent Distress, Anxious Eye Exam: Bilateral Eye: Abnormal EOM, Normal Inspection Ears: Normal External Exam Mouth/Throat: Normal Inspection, Normal Gums, Normal Lips, Normal Oropharynx, Normal Teeth. No: Dry Mucous Membrane, Hoarse Voice, Lip Swelling, Throat Swelling Head: Atraumatic, Normocephalic Neck: Normal Inspection, Supple, Non-Tender, Full Range of Motion. No: Lymphadenopathy (L), Thyromegaly Respiratory/Chest: No Respiratory Distress, Lungs Clear, Normal Breath Sounds, No Accessory Muscle Use Cardiovascular: Regular Rate, Rhythm, No Edema, No Gallop, No Murmur, No Rub (Female) Exam: Deferred Rectal (Female) Exam: Deferred Back: Full Range of Motion Extremities: Normal Range of Motion, Non-Tender, No Pedal Edema. No: Increased Warmth, Mottled, Pallor Psychiatric: Anxious, Depressed Mood, Flat Affect Skin: Warm, Dry, Intact Course - Re-Assessments/Exams Free Text/Narrative Re-Assessment/Exam: 07/28/21 10:38 met with pt and parents at bedside. extremely anxious. physical exam negative. multiple complaints. recently split from . she and her daughter had covid. doing much better physically. not medicated for bipolar for 6 years as spouse "wouldn't let her take medication or go to the doctor". will discharge to follow up in clinic and refer to psychiatry/psychology Departure - Departure Time of Disposition: 10:44 Disposition: Home, Self-Care 01 Condition: Good Clinical Impression: Anxiety, Bipolar disorder with current episode depressed - Discharge Information *PRESCRIPTION DRUG MONITORING PROGRAM REVIEWED*: Not Applicable *COPY OF PRESCRIPTION DRUG MONITORING REPORT IN PATIENT DELTA: Not Applicable Instructions: Managing Bipolar Disorder Referrals: Basilia Bowman NP [Primary Care Provider] - Sofai Gonzalez MD [Emergency Provider] - 1 Week (establish care per pt request) - Problem List Review Problem List Initiated/Reviewed/Updated: Yes - Assessment/Plan Assessment:: dry throat generalized aches and pains anxiety untreated bipolar disorder, unspecified - dry mouth likely secondary to benadryl use last night - anxiety 2/2 change in life circumstances and recent covid 19 - generalized aches and pain likely physical manifestation of anxiety and sedentary lifestyle the past weeks Plan: - drink plenty of water and suck on sugar free candy until benadryl wears off (within 24 hours - OTC acetaminophen 1000mg every 8 hours as needed or 650mg every 6 hours as needed for pain control - May discontinue IS, check O2 sat probe if difficulty breathing for reassurance. Goal is sat >90% - follow up in clinic with Dr. Gonzalez - start seroquel 50mg at bedtime - will refer to psychiatry from clinic at post ED follow up/ establish care visit.
== END 2021-07-28 11:15 | disposition home or self-care (01) ==
LOC: LL.ED 09:37
DX: F41.9 Anxiety disorder, unspecified (principal); F31.9 Bipolar disorder, unspecified; Z88.1 Allergy status to other antibiotic agents; Z88.2 Allergy status to sulfonamides
CPT/HCPCS: 99283; 99284

== ENCOUNTER 2021-07-29 10:01 | Emergency (ER) | payer SELFPAY ==
[2021-07-29] MEDS ORDERED: Sodium Chloride 0.9% 10 ML Syringe FLUSH PRN (10:21)
[2021-07-29] MEDS ORDERED: LORazepam 2 MG/ML SDV IVPUSH ONE (10:54)
--- NOTE | 2021-07-29 10:54 | EDM.PDOC ---
ED HPI GENERAL MEDICAL PROBLEM - General Chief Complaint: Neurological Problem Stated Complaint: tightness in body. Time Seen by Provider: 07/29/21 10:25 Source of Information: Reports: Patient, Family History Limitations: Reports: No Limitations - History of Present Illness INITIAL COMMENTS - FREE TEXT/NARRATIVE: Patient comes emergency department today from home with a myriad of complaints. This patient who was just in the emergency department about 24 hours ago has a history of bipolar disorder and she has been off of her medications. She has had quite the social disruption in her life with some very difficult separation of her . She was started on Seroquel yesterday. This morning when she woke up her father who she is currently staying with states that she was very happy interactive had a positive outlook on the day. The father came back about 2-1/2 hours later after doing some snow removal and the patient was quite anxious. She was agitated. She was relating that she had a syncopal episode at home. Therefore the ambulance was summoned. Upon arrival the patient relates that this morning she was having a very good morning and then she started worrying about the back pain and leg pain that she has had since she had Covid approximately 3 months ago. This is a constant pain in her legs and her back that makes it feel like she wants to get up and walk. She walked constantly inside the house for a total of 4 hours today. She felt like all she had to do was walking it would make her legs better. Following doing so she had a near syncopal episode where her legs got very weak and she fell to the ground. Therefore the ambulance was summoned. On EMS arrival it was noted that she had some shaking to her extremities but she was alert and appropriate was not incontinent of urine. EMS was concerned of a seizure although she was alert during the shaking episodes. THe patient does complain of a headache. - Related Data Allergies Allergy/AdvReac Type Severity Reaction Status Date / Time cefuroxime Allergy Difficulty Verified 07/28/21 09:38 Swallowing Sulfa (Sulfonamide Allergy Airway Verified 07/28/21 09:38 Antibiotics) Tightness sulfamethoxazole Allergy Airway Verified 07/28/21 09:38 [From Bactrim] Tightness trimethoprim [From Bactrim] Allergy Airway Verified 07/28/21 09:38 Tightness Home Meds: Home Meds QUEtiapine [SEROquel] 50 mg PO BEDTIME #14 tablet 07/28/21 [Rx] LORazepam [Lorazepam] 0.5 mg PO BID PRN #9 tablet 07/29/21 [Rx] Past Medical History Psychiatric History: Reports: Bipolar (currently untreated) - Past Surgical History HEENT Surgical History: Reports: Oral Surgery Female Surgical History: Reports: Hysterectomy Social & Family History - Family History Family Medical History: No Pertinent Family History Psychiatric: Reports: Depression (father) - Caffeine Use Caffeine Use: Reports: Coffee - Sexual History Sexual History: Reports: Opposite Sex Partner, Other (See Below) (not currently sexually active) - Living Situation & Occupation Living situation: Reports: , with Family (currently from . she and her 12 year old daughter live with her parents.) Occupation: Employed ([employer]) ED ROS GENERAL - Review of Systems Review Of Systems: Comprehensive ROS is negative, except as noted in HPI. ED EXAM, NEURO - Physical Exam Exam: See Below Exam Limited By: No Limitations General Appearance: Alert, WD/WN, No Apparent Distress Eye Exam: Bilateral Eye: EOMI, PERRL Ears: Normal External Exam Nose: Normal Inspection Throat/Mouth: Normal Inspection Head Exam: Atraumatic, Normocephalic Neck: Normal Inspection, Supple, Non-Tender, Full Range of Motion Respiratory/Chest: No Respiratory Distress, Lungs Clear, Normal Breath Sounds, No Accessory Muscle Use, Chest Non-Tender Cardiovascular: Normal Peripheral Pulses, Regular Rate, Rhythm, Tachycardia GI/Abdominal: Normal Bowel Sounds, Soft, Non-Tender (Female) Exam: Deferred Rectal (Female) Exam: Deferred Neurological: Alert, Normal Mood/Affect, Normal Dorsiflexion, CN II-XII Intact, Normal Plantar Flexion, Normal Reflexes, No Motor/Sensory Deficits, Oriented x 3 Back Exam: Normal Inspection Extremities: Normal Inspection, Normal Range of Motion, No Pedal Edema, Normal Capillary Refill Psychiatric: Anxious (Patient is quite extremely anxious. Her eyes are darting around the room she is constantly fidgeting and playing with things. She has a fine tremor.) Skin Exam: Warm, Dry, Intact, Normal Color, No Rash Course - Vital Signs Last Recorded V/S: Last Vital Signs Temp 98.0 F 07/29/21 10:01 Pulse 117 H 07/29/21 10:01 Resp 20 07/29/21 10:01 BP 136/57 L 07/29/21 10:01 Pulse Ox 99 07/29/21 10:01 - Orders/Labs/Meds Orders: Active Orders 24 hr Category Date Time Status EKG Documentation Completion [RC] ASDIRECTED Care 07/29/21 10:21 Active Orthostatic Vital Signs [RC] ASDIRECTED Care 07/29/21 12:30 Active Head wo Cont [CT] Stat Exams 07/29/21 10:19 Taken PROLACTIN [REF] Stat Lab 07/29/21 10:32 Received SALICYLATE [REF] Stat Lab 07/29/21 10:32 Received Sodium Chloride 0.9% [Saline Flush] Med 07/29/21 10:21 Active 10 ml FLUSH ASDIRECTED PRN Peripheral IV Insertion Adult [OM.PC] Stat Oth 07/29/21 10:19 Ordered Medication Orders Sodium Chloride (Sodium Chloride 0.9% 10 Ml Syringe) 10 ml FLUSH ASDIRECTED PRN PRN Reason: Keep Vein Open Labs: Laboratory Tests 07/29/21 07/29/21 07/29/21 Range/Units 10:15 10:15 10:32 WBC 13.7 H (4.0-10.2) K/uL RBC 4.41 (3.77-5.09) M/uL Hgb 13.7 (11.7-15.5) g/dL Hct 41.0 (34.0-46.0) % MCV 93.0 (84.0-98.0) fL MCH 31.1 (28.2-33.3) pg MCHC 33.4 (31.7-36.0) g/dL RDW 13.4 (11.2-14.1) % Plt Count 493 H (150-350) K/uL Neut % (Auto) 76.3 (45.0-80.0) % Lymph % (Auto) 13.9 (10.0-50.0) % [place] % (Auto) 9.6 (2.0-14.0) % Eos % (Auto) 0.1 (0.0-5.0) % Baso % (Auto) 0.1 (0.0-2.0) % Neut # (Auto) 10.46 H (1.40-7.00) K/uL Lymph # (Auto) 1.90 (0.50-3.50) K/uL [place] # (Auto) 1.32 H (0.00-1.00) K/uL Eos # (Auto) 0.01 (0.00-0.50) K/uL Baso # (Auto) 0.01 (0.00-0.20) K/uL D-Dimer, Quantitative (0-400) ng/mL Sodium (136-145) mmol/L Potassium (3.5-5.1) mmol/L Chloride (98-107) mmol/L Carbon Dioxide (21.0-32.0) mmol/L Anion Gap (7-15) meq/L BUN (7-18) mg/dL Creatinine (0.51-1.17) mg/dL Est Cr Clr Drug Dosing Estimated GFR (MDRD) mL/min Glucose (70-99) mg/dL Lactic Acid (0.4-2.0) mmol/L Calcium (8.5-10.1) mg/dL Magnesium (1.8-2.4) mg/dL Total Bilirubin (0.2-1.0) mg/dL AST (15-37) U/L ALT (12-78) U/L Alkaline Phosphatase (46-116) IU/L Troponin I High Sens (<=51) ng/L C-Reactive Protein (<=0.9) mg/dL Total Protein (6.4-8.2) g/dL Albumin (3.4-5.0) g/dL Specimen Type Urinvoid Urine Color Yellow Urine Appearance Clear Urine pH 6.0 (5.0-9.0) Ur Specific [place] <= 1.005 (1.005-1.030) Urine Protein Negative (NEGATIVE) mg/dL Urine Glucose (UA) Negative (NEGATIVE) mg/dL Urine Ketones Negative (NEGATIVE) mg/dL Urine Occult Blood Negative (NEGATIVE) Urine Nitrite Negative (NEGATIVE) Urine Bilirubin Negative (NEGATIVE) Urine Urobilinogen 0.2 (0.2-1.0) E.U./dL Ur Leukocyte Esterase Negative (NEGATIVE) Urine Opiates Screen Negative (NEGATIVE) Ur Buprenorphine Scrn Negative (NEGATIVE) Ur Oxycodone Screen Negative (NEGATIVE) Ur EDDP (Meth Metab) Negative (NEGATIVE) Acetaminophen (10.0-30.0) ug/mL Ur Barbiturates Screen Negative (NEGATIVE) Ur Tricyclics Screen Negative (NEGATIVE) Ur Amphetamine Screen Negative (NEGATIVE) U Methamphetamines Scrn Negative (NEGATIVE) Urine MDMA Screen Negative (NEGATIVE) U Benzodiazepines Scrn Negative (NEGATIVE) U Cocaine Metab Screen Negative (NEGATIVE) U Marijuana (THC) Screen Negative (NEGATIVE) Ethyl Alcohol (0.000-0.080) g/dL 07/29/21 07/29/21 07/29/21 Range/Units 10:32 10:32 10:32 WBC (4.0-10.2) K/uL RBC (3.77-5.09) M/uL Hgb (11.7-15.5) g/dL Hct (34.0-46.0) % MCV (84.0-98.0) fL MCH (28.2-33.3) pg MCHC (31.7-36.0) g/dL RDW (11.2-14.1) % Plt Count (150-350) K/uL Neut % (Auto) (45.0-80.0) % Lymph % (Auto) (10.0-50.0) % [place] % (Auto) (2.0-14.0) % Eos % (Auto) (0.0-5.0) % Baso % (Auto) (0.0-2.0) % Neut # (Auto) (1.40-7.00) K/uL Lymph # (Auto) (0.50-3.50) K/uL [place] # (Auto) (0.00-1.00) K/uL Eos # (Auto) (0.00-0.50) K/uL Baso # (Auto) (0.00-0.20) K/uL D-Dimer, Quantitative 352 (0-400) ng/mL Sodium 139 (136-145) mmol/L Potassium 3.2 L (3.5-5.1) mmol/L Chloride 103 (98-107) mmol/L Carbon Dioxide 27.1 (21.0-32.0) mmol/L Anion Gap 12.1 (7-15) meq/L BUN 14 (7-18) mg/dL Creatinine 0.66 (0.51-1.17) mg/dL Est Cr Clr Drug Dosing TNP Estimated GFR (MDRD) > 60 mL/min Glucose 101 H (70-99) mg/dL Lactic Acid 1.0 (0.4-2.0) mmol/L Calcium 8.4 L (8.5-10.1) mg/dL Magnesium 2.2 (1.8-2.4) mg/dL Total Bilirubin 0.5 (0.2-1.0) mg/dL AST 19 (15-37) U/L ALT 74 (12-78) U/L Alkaline Phosphatase 81 (46-116) IU/L Troponin I High Sens 11 (<=51) ng/L C-Reactive Protein < 0.2 (<=0.9) mg/dL Total Protein 6.4 (6.4-8.2) g/dL Albumin 3.1 L (3.4-5.0) g/dL Specimen Type Urine Color Urine Appearance Urine pH (5.0-9.0) Ur Specific [place] (1.005-1.030) Urine Protein (NEGATIVE) mg/dL Urine Glucose (UA) (NEGATIVE) mg/dL Urine Ketones (NEGATIVE) mg/dL Urine Occult Blood (NEGATIVE) Urine Nitrite (NEGATIVE) Urine Bilirubin (NEGATIVE) Urine Urobilinogen (0.2-1.0) E.U./dL Ur Leukocyte Esterase (NEGATIVE) Urine Opiates Screen (NEGATIVE) Ur Buprenorphine Scrn (NEGATIVE) Ur Oxycodone Screen (NEGATIVE) Ur EDDP (Meth Metab) (NEGATIVE) Acetaminophen 5.6 L (10.0-30.0) ug/mL Ur Barbiturates Screen (NEGATIVE) Ur Tricyclics Screen (NEGATIVE) Ur Amphetamine Screen (NEGATIVE) U Methamphetamines Scrn (NEGATIVE) Urine MDMA Screen (NEGATIVE) U Benzodiazepines Scrn (NEGATIVE) U Cocaine Metab Screen (NEGATIVE) U Marijuana (THC) Screen (NEGATIVE) Ethyl Alcohol 0.000 (0.000-0.080) g/dL Meds: Medications Generic Name Dose Route Start Last Admin Trade Name Freq PRN Reason Stop Dose Admin Sodium Chloride 10 ml 07/29/21 10:21 Sodium Chloride 0.9% 10 Ml Syringe FLUSH ASDIRECTED PRN Keep Vein Open Discontinued Medications Generic Name Dose Route Start Last Admin Trade Name Freq PRN Reason Stop Dose Admin Lorazepam 1 mg 07/29/21 10:54 07/29/21 11:34 Lorazepam 2 Mg/Ml Sdv IVPUSH 07/29/21 10:55 Not Given ONETIME ONE Lorazepam 1 mg 07/29/21 11:28 07/29/21 11:40 Lorazepam 1 Mg Tab PO 07/29/21 11:29 1 mg ONETIME ONE Administration - Radiology Interpretation Free Text/Narrative:: CT head per radiology per radiology shows no acute intracranial abnormality. Fluid density areas in the left cerebral white matter favored to represent [place]chow-[place] spaces are typically benign and incidental. - Re-Assessments/Exams Free Text/Narrative Re-Assessment/Exam: He was completed and reviewed extemporaneously by myself without any signs of ischemia. 1 mg of Ativan was ordered as this patient is quite anxious and I feel that this may be the majority of her symptoms with her underlying bipolar disorder that she just started on Seroquel as well as her very prominent social history for which the patient initially refused but eventually did take. CT of the head was negative. Laboratory evaluation is rather unremarkable. She has a mildly low potassium at 3.2, glucose 101, calcium 8.4. Troponin is 11. Magnesium 2.2. Her D-dimer is normal at 352. Urinalysis is negative. Urine drug screen is negative and alcohol is negative. Following the Ativan the patient relates that this is the best that she has felt in weeks. The pain in her back and her legs and the sensation to constantly move has resolved. I do not find any concerns acutely urgently at this time for her complaints and I really feel that there most likely due to her underlying bipolar disorder as well as anxiety. Symptoms have almost completely resolved after the administration of lorazepam. We will discharge her home with her family at this time. We will give her a short course of Ativan that she can use until her Seroquel becomes therapeutic. She does have a follow-up in the primary care clinic in the next couple of days. Her and her family are very comfortable with this plan and their questions are answered. Departure - Departure Time of Disposition: 12:00 Disposition: Home, Self-Care 01 Clinical Impression: Panic attack Bipolar affective disorder Qualifiers: Active/Remission status: remission status unspecified Qualified Code(s): F31.9 - Bipolar disorder, unspecified - Discharge Information Prescriptions: LORazepam [Lorazepam] 0.5 mg PO BID PRN #9 tablet PRN Reason: Anxiety Instructions: Panic Attack, [id number], Bipolar 1 Disorder Referrals: PCP,Unknown [Primary Care Provider] - Forms: ED Department Discharge Additional Instructions: Continue on the seroquel. Follow up in the clinic as previous. For acute episodes of anxiety or panic. Lorazepam 1 tablet three times a day as needed. Caution sedation. Do not take with alcohol or while driving. RX sent to the pharmacy. Return to the ED if new or worsening symptoms. Common cold, nasal saline rinse over the counter. Flonase OTC and increase fluids as much as possible. Keep follow up with psych as previously discussed. - My Orders Last 24 Hours: My Active Orders 07/29/21 10:19 Head wo Cont [CT] Stat Peripheral IV Insertion Adult [OM.PC] Stat 07/29/21 10:21 EKG Documentation Completion [RC] ASDIRECTED Sodium Chloride 0.9% [Saline Flush] 10 ml FLUSH ASDIRECTED PRN 07/29/21 10:32 PROLACTIN [REF] Stat SALICYLATE [REF] Stat 07/29/21 12:30 Orthostatic Vital Signs [RC] ASDIRECTED - Assessment/Plan Last 24 Hours: My Active Orders 07/29/21 10:19 Head wo Cont [CT] Stat Peripheral IV Insertion Adult [OM.PC] Stat 07/29/21 10:21 EKG Documentation Completion [RC] ASDIRECTED Sodium Chloride 0.9% [Saline Flush] 10 ml FLUSH ASDIRECTED PRN 07/29/21 10:32 PROLACTIN [REF] Stat SALICYLATE [REF] Stat 07/29/21 12:30 Orthostatic Vital Signs [RC] ASDIRECTED
[2021-07-29 10:55] LABS: SODIUM,NA 139 mmol/L (136-145)
[2021-07-29 10:55] LABS: BARBITURATE SCREEN,URINE NEGATIVE (NEGATIVE); BENZODIAZEPINES SCREEN,URINE NEGATIVE (NEGATIVE); BUPRENORPHINE SCREEN,URINE NEGATIVE (NEGATIVE); EDDP,URINE SCREEN NEGATIVE (NEGATIVE); TCA SCREEN,URINE NEGATIVE (NEGATIVE); THC SCREEN,URINE 50 NG/ML NEGATIVE (NEGATIVE)
[2021-07-29 11:12] LABS: ACETAMINOPHEN 5.6 ug/mL (10.0-30.0); CHLORIDE,CL 103 mmol/L (98-107)
[2021-07-29 11:27] LABS: ANION GAP 12.1 meq/L (7-15)
[2021-07-29] MEDS ORDERED: LORazepam 1 MG Tab PO ONE (11:28)
--- NOTE | 2021-07-29 16:24 | PCM.EKG ---
#1 Interpretation EKG Date: 07/29/21 Time: 10:32 Rhythm: NSR Rate (Beats/Min): 99 [place]: Normal P-Wave: Present QRS: Normal ST-T: Normal QT: Prolonged
== END 2021-07-29 14:55 | disposition home or self-care (01) ==
LOC: LL.ED 10:01
DX: F31.9 Bipolar disorder, unspecified (principal); F41.0 Panic disorder [episodic paroxysmal anxiety]; Z88.1 Allergy status to other antibiotic agents; Z88.2 Allergy status to sulfonamides; Z79.899 Other long term (current) drug therapy
CPT/HCPCS: 36415; 70450; 80053; 80143; 80179; 80305-QW; 80307; 81003; 83605; 83735; 84146; 84484; 85025; 85379; 86140; 93005; 93010; 99284; 99285-25; A9270-GY